=== PATIENT | female | born 1965 | race Caucasian/White ===

== ENCOUNTER 2025-02-28 08:22 | Emergency (ER) | payer MEDICAID, SELFPAY ==
--- OUTSIDE RECORDS SUMMARY | 2008-01-03 23:00 | XMS_ITS | Encounter Summary ---
Author Organization [facility] Address [address] [facility] [address] [place] [id number] Phone Care Team Providers Care Stretcher Helper Name Role Phone Unavailable Primary Care Provider Unavailabl e Encounter Details Date Type Department Care Team (Late st Contact Info) Description 01/04/2008 Hospital Encounter [facility],Outside Imaging [address] [place] [address] System, Provider Not In, [facility] [address] [address] Social History Tobacco Use Types Packs/Day Years Used Date Smoking Tobacco: Former Cigarettes 1 40 0 09/11/1979 - 09/11/2019 Smokeless Tobacco: Never Alcohol Use Standard Drinks/Week Comments Not Currently 0 (1 standard drink = 0.6 oz pur e alcohol) rarely Education Answer Date Recorded Are you interested in more education? Not on kiki e 07/25/2022 Are you concerned about learning? Not on file 07/25/2022 No 07/25/2022 No 07/25/2022 Digital Access Answer Date Recorded No 08/23/2022 No 08/23/2022 Reliable internet access at home? Not on file 08/23/2022 Device with a working camera? Not on file Intimate Partner Violence Answer Date R ecorded Are you denied basic needs s uch as food, clothing, or medical care? No 01/29/2024 In the past 12 months have y ou been in a relationship with a person who hurts, threatens, or tries to control you? No 01/29/2024 Are you denied basic needs s uch as food, clothing, or medical care? No 01/29/2024 In the past 12 months have y ou been in a relationship with a person who hurts, threatens, or tries to control you? No 01/29/2024 Comments No Sex and Gender Information Value Date Recorded Sex Assigned at Not on file Legal Sex Female 9:41 PM EDT Gender Identity Female 05/25/2023 11:29 AM EST Sexual Orientation Not on file documented as of this encounter Functional Status * Calculated C-SSRS Risk Score (Lifetime/Recent) Answer Date of Assessment Author Low Risk 01/29/2024 8:43 AM FIDET Esteban West RN * [place] Suicide Severity Rating Scale (Screener/Recent Self-Report) Question Answer Date of Assessment Author 1. Wish to be (Past 1 Month) No 024 8:43 AM FIDET Sonja West RN 2. Non-Specific Active Suici kia Thoughts (Past 1 Month) Yes 01/29/2024 8:43 AM FIDET Sonja West RN 3. Active Suicidal Ideation with any Methods (Not Plan) Without Intent to Act (Past 1 Month) No 01/29/2024 8:43 AM FIDET Anni West RN 4. Active Suicidal Ideation with Some Intent to Act, Without Specific Plan (Past 1 Month) No 01/29/2024 8:43 AM FIDET Anni West RN 5. Active Suicidal Ideation with Specific Plan and Intent (Past 1 Month) No 01/29/2024 8:43 AM FIDET Sonja West RN 6. Suicidal Behavior (Lifetime) No 8:43 AM FIDET Sonja West RN documented as of this encounter Plan of Treatment Upcoming Encounters Date Type Department Care Team (Late st Contact Info) Description 08/14/2025 4:30 PM EDT Office Visit [facility] 3rd Floor, [address] [place] [address] Taryn Herrera, SOFTWARE ENGINEER [address] [place] [address] [email or web address] documented as of this encounter Procedures Procedure Name Priority Date/Time Associated Diagnosis Comments BI US BREAST OUTSIDE (NO INTERPRETATION) Routine 01/04/2008 12:00 AM EDT documented in this encounter Results * US Breast Outside (No Interpretation) (01/04/2008 12:00 AM EDT) Narrative SYSTEMGENERATED, DOCUMENTATION - 03/28/2021 11:27 AM EST This study is for PACS storage only and not for interpretation. us Provider Not In System PhD IMG OUTSIDE IMAGING W /OUT INTERPRETATION Final Result documented in this encounter Visit Diagnoses Not on filedocumented in this encounter Additional Source Comments The information contained in this document represents components of the legal health record. It is not the complete legal health record.[facility]
--- OUTSIDE RECORDS SUMMARY | 2008-01-03 23:00 | XMS_ITS | Encounter Summary ---
Author Organization [facility] Address [address] [facility] [address] [place] [address] Phone Care Team Providers Care Cable Armorer Name Role Phone Unavailable Primary Care Provider Unavailabl e Encounter Details Date Type Department Care Team (Late st Contact Info) Description 01/04/2008 Hospital Encounter [facility] [address] [place] [address] Anthony Valenzuela MD [address] [facility], [address] [place] [address] [email or web address] Social History Tobacco Use Types Packs/Day Years [...] 8:43 AM FIDET Esteban West RN * [place] Suicide Severity Rating Scale (Screener/Recent Self-Report) Question Answer Date of Assessment Author 1. Wish to be (Past 1 Month) No 024 8:43 AM Sonja Parsons RN 2. Non-Specific Active Suici kia Thoughts (Past 1 Month) Yes 01/29/2024 8:43 AM Sonja Parsons RN 3. Active Suicidal Ideation with any Methods (Not Plan) Without Intent to Act (Past 1 Month) No 01/29/2024 8:43 AM Anni Parsons RN 4. Active Suicidal Ideation with Some Intent to Act, Without Specific Plan (Past 1 Month) No 01/29/2024 8:43 AM Anni Parsons RN 5. Active Suicidal Ideation with Specific Plan and Intent (Past 1 Month) No 01/29/2024 8:43 AM Sonja Parsons RN 6. Suicidal Behavior (Lifetime) No 8:43 AM Sonja Parsons RN documented as of this encounter Plan of Treatment Upcoming Encounters Date Type Department Care Team (Late st Contact Info) Description 08/14/2025 4:30 PM EDT Office Visit [facility] [address] [facility] [address] [facility], [address] [place] [address] Taryn Herrera, SIDE SAWYER [address] [place] [address] documented as of this encounter Procedures Procedure Name Priority Date/Time Associated Diagnosis Comments BI US BREAST OUTSIDE (NO INTERPRETATION) Routine 01/04/2008 12:00 AM EDT documented in this encounter Results * US Breast Outside (No Interpretation) (01/04/2008 12:00 AM EDT) Narrative [facility] IMG INTERFACES - 02/15/2021 10:33 AM EST This study is for PACS storage only and not for interpretation. us Anthony Valenzuela MD IMG OUTSIDE IMAGING W/OUT INTE RPRETATION Final Result [facility]G INTERFACES documented in this encounter Visit Diagnoses Not on filedocumented in this encounter Additional Source Comments The information contained in this document represents components of the legal health record. It is not the complete legal health record.[facility]
--- OUTSIDE RECORDS SUMMARY | 2010-02-04 | XMS_ITS | Encounter Summary ---
Author Organization [facility] Address [address] [facility] [address] [place] [address] Phone Care Team Providers Care Wrinkle Chaser Name Role Phone Unavailable Primary Care Provider Unavailabl e Encounter Details Date Type Department Care Team (Late st Contact Info) Description 02/04/2010 Hospital Encounter [facility] [address] [place] [address] Anthony Valenzuela MD [address] [facility], [address] [place] [address] Social History Tobacco Use Types Packs/Day Years [...] 8:43 AM FIDET Esteban West RN * [place] Suicide Severity Rating Scale (Screener/Recent Self-Report) Question [...] 1 Month) No 01/29/2024 8:43 AM Sonja Parosns RN 6. Suicidal Behavior (Lifetime) No 8:43 AM Sonja Parsons RN documented as of this encounter Plan of Treatment Upcoming Encounters Date Type Department Care Team (Late st Contact Info) Description 08/14/2025 4:30 PM EDT Office Visit [facility] [address] [facility] 3rd Floor, [address] [place] [address] Taryn Herrera, CAR[address] STREET[address] [place] [address] documented as of this encounter Procedures Procedure Name Priority Date/Time Associated Diagnosis Comments BI MAMMOGRAM OUTSIDE (NO INTERPRETATION) Routine 02/04/2010 12:00 AM EST documented in this encounter Results * Mammogram Outside (No Interpretation) (02/04/2010 12:00 AM EST) Narrative [facility] - 02/15/2021 10:34 AM EST This study is for PACS storage only and not for interpretation. us Anthony Valenzuela MD IMG OUTSIDE IMAGING W/OUT INTE RPRETATION Final Result [facility] documented in this encounter Visit Diagnoses Not on filedocumented in this encounter Additional Source Comments The information contained in this document represents components of the legal health record. It is not the complete legal health record.[facility]
--- NOTE | ~2025-02-28 | XR_ITS ---
EXAMINATION: XR CHEST CLINICAL INFORMATION: chest pain COMPARISON: None available. TECHNIQUE: PA and lateral views FINDINGS: No consolidation, pleural effusion or pneumothorax. Pulmonary reticular pattern, mild. Increased AP diameter of the thorax. Cardiomediastinal silhouette size is normal. Multilevel thoracolumbar spondylosis. Radiopaque anchors in the right humeral head/greater tuberosity. XR/XR chest 2V IMPRESSION: No acute airspace disease. Postsurgical changes suggesting rotator cuff tendon tear repair, right shoulder. Electronically signed by: Chris Bhatia MD 02/28/2025 09:19 AM [facility]
--- NOTE | ~2025-02-28 | US_ITS ---
EXAMINATION: US ABDOMEN LIMITED CLINICAL INFORMATION: Epigastric pain. Elevated liver function tests.. COMPARISON: None available. TECHNIQUE: Real-time imaging of the right upper quadrant abdominal viscera. FINDINGS: PANCREAS: Pancreas partially visualized. Visualized portion of the pancreas appears unremarkable. LIVER: The liver is normal in size. Right lobe measures 14.7 cm. Left lobe measures 7.5 cm. The liver contour is normal. Parenchymal echogenicity is normal. No focal hepatic lesion. There is no intrahepatic biliary duct dilatation seen. GALLBLADDER: The gallbladder is physiologically distended without evidence of stones, sludge, polyps, wall thickening or pericholecystic fluid. COMMON BILE DUCT: Normal in caliber measuring 0.2 cm in diameter. RIGHT KIDNEY: No hydronephrosis. No renal calculi or focal parenchymal lesions. The kidney measures 10.4 cm in maximum dimension. FREE FLUID: None. Technologist notes that patient reported pain upon palpation/scanning of the epigastric region/pancreas region. US/US abdomen limited IMPRESSION: * Pancreas is partially visualized. The visualized portion of the pancreas appears unremarkable. * No acute findings identified by ultrasound otherwise. * Cause of patient's symptoms has not been determined. Further evaluation with CT scan as clinically indicated. Electronically signed by: Shane Causey MD 02/28/2025 04:05 PM [facility]
--- NOTE | ~2025-02-28 | CT_ITS ---
EXAMINATION: CT HEAD WITHOUT IV CONTRAST HISTORY: headache. TECHNIQUE: Unenhanced helical CT of the head was performed per standard departmental protocol. Coronal and sagittal reformats of the head were also evaluated. One or more of the following techniques was used for dose reduction: Automated exposure control, adjustment of the mA and/or kV according to patient size, use of iterative reconstruction technique. DLP: 656 mGy-cm COMPARISON: There are no prior studies available for comparison. FINDINGS: BRAIN: The brain parenchyma is unremarkable. There is normal cummings/white differentiation. The ventricular system is normal in size and configuration. There is no mass effect or midline shift. No intra- or extra-axial fluid collections are identified. SINUSES: The visualized paranasal sinuses are clear. The mastoid air cells and middle ear cavities are well pneumatized. ORBITS: The visualized orbits are unremarkable. BONES/SOFT TISSUES: The extracranial soft tissues are unremarkable. The calvarium is intact. No suspicious lytic or sclerotic lesions. CT/CT head/brain wo IV con IMPRESSION: No acute intracranial abnormality. Electronically signed by: Jillian Roldan MD 02/28/2025 04:16 PM [facility]
--- NOTE | 2025-02-28 08:23 | ECG_ITS ---
Test Reason : CP Blood Pressure : */* mmHG Vent. Rate : 93 BPM Atrial Rate : 93 BPM P-R Int : 124 ms QRS Dur : 80 ms QT Int : 350 ms P-R-T Axes : 67 75 -7 degrees QTcB Int : 435 ms Normal sinus rhythm Nonspecific ST and T wave abnormality Abnormal ECG No previous ECGs available Referred By: Dilcia Banegas Electronically Signed By: ELGIN MURILLO
[2025-02-28 08:30] VITALS: BP 148/69; PULSE 101; RESP 20; TEMP 36.3; O2SAT 97; BMI 22.0
--- NOTE | 2025-02-28 08:31 | ED.GENADULT ---
HPI - General Adult General Chief complaint: Chest Pain Stated complaint: chest pain Time Seen by Provider: 02/28/25 14:35 Source: patient Mode of arrival: ambulatory Limitations: no limitations History of Present Illness ED Provider: DR. Wahl HPI narrative: 59-year-old female came in for evaluation of lower chest pain, and epigastric pain started since last night after dinner pain is mostly localized in the upper epigastric and lower chest area with no radiation, no palpitation, no shortness of breath, no nausea, vomiting, no burning sensation, no fever, no chills, no recent travel, no lower extremity swelling or tenderness. No history of intra-abdominal surgery, normal bowel movement, passing flatus normally. Patient complained of headache and confusion this morning now she is back at her baseline. Related Data Allergies Allergy/AdvReac Type Severity Reaction Status Date / Time clindamycin Allergy Vomiting Verified 02/28/25 08:33 codeine Allergy Vomiting Verified 02/28/25 08:33 [facility] Social History Social History Advance Directives: No Advance Directives Information Provided: No Do you have a plan to hurt others: No Plan Physical Exam ED Vital Signs: Vital Signs - 24 hr 02/28/25 08:30 02/28/25 15:00 02/28/25 16:56 Temperature 97.4 F 97.8 F Pulse Rate 101 H 71 78 Respiratory Rate 20 12 14 Blood Pressure 148/69 H 124/72 140/77 H Pulse Oximetry 97 98 97 Oxygen Delivery Method Room Air Room Air Room Air BMI result Body Mass Index 22.0 Vital signs have been reviewed and appear to be correct. Blood pressure elevated. Heart rate normal. Respiratory rate normal. Temperature normal. Oxygen saturation normal. Appearance: Alert. Oriented X3. No acute distress. Head: Normal external exam. Normocephalic. Atraumatic. No Salas signs noted. No raccoon eyes noted Eyes: PERRLA. EOMI. Conjunctiva and sclera normal. Eyelids normal. ENT: TM's Normal. Pharynx normal. Uvula midline. Moist mucous membranes. No trismus noted. No drooling noted. No muffled voice noted. Neck: Normal inspection. Neck supple. FROM. No adenopathy. Thyroid Normal. No meningeal signs. No neck mass noted. CVS: Normal heart rate and rhythm. Heart sound normal. No murmurs noted. Pulses normal throughout. Respiratory: No respiratory distress. Painless inspiration. Breath sounds normal. No wheezes/rales/rhonchi noted. Chest nontender. No accessory muscle usage noted or decreased air movement noted. Abdomen: Soft, mild epigastric tenderness, no guarding, no rebound tenderness. Bowel sounds normal in all 4 quadrants. No distention noted. No organomegaly noted. No visible injury noted. Back: No CVA tenderness. Full range of motion noted. Skin: Skin warm and dry. Normal skin color. Normal skin turgor. No rashes/lesions/lacerations noted. Extremities: No lower extremity edema. Extremities exhibit normal range of motion. Extremities nontender. Neuro: Mental status: Normal attention, orientation, memory, and affect. Cranial nerves: Pupils are equal, round and reactive to light, EOMI, visual bautista are fall, face is symmetric, facial sensations are normal. Motor examination normal muscle tone, strength to 4 extremities. DTR are +2, planter's are flexor. Sensory exam; normal coordination, no ataxia, gait stable. Cerebellar exam: [id number] and [id number] is normal. Extrapyramidal system: No tremors, no rigidity with normal facial expressions. Pronator drift not present Course Course Course Narrative: Rapid medical examination performed in triage by Dilcia Banegas PA-C: Patient is a 59 year old assigned female at presenting to the emergency department with chest pain. Detailed physical exam and review of systems are deferred to the rail operations controller. EKG, labs, imaging, swabs ordered. Patient placed back in the waiting room pending room availability and results. Reevaluation(s) Reevaluation #1: 59-year-old female came in for evaluation of multiple symptoms. 1. Chest pain negative troponin x2, negative D-dimer with absence of risk for DVT or pulmonary embolism. 2.Patient feels better after was given NSAIDs and PPI. 3. Ultrasound of the abdomen revealed no gallbladder problems. Patient feels much better will discharge to follow-up with PCP. Time: 17:25 Medications Administered Discontinued Medications Generic Name Dose Route Start Last Admin Trade Name Freq PRN Reason Stop Dose Admin Al Hydroxide/Mg Hydroxide 30 ml 02/28/25 14:54 02/28/25 15:12 Magnesium Hydrox/Alum Hydrox 30 Ml Oral.Susp PO 02/28/25 14:55 30 ml ONCE ONE Administration Famotidine 20 mg 02/28/25 14:54 02/28/25 15:12 Famotidine/Pf 20 Mg/2 Ml Vial IVPUSH 02/28/25 14:55 20 mg ONCE ONE Administration Sucralfate 1 gm 02/28/25 14:54 02/28/25 15:12 Sucralfate Oral Suspension 1 Gm/10 Ml Oral.Susp PO 02/28/25 14:55 1 gm ONCE ONE Administration Medical Decision Making Differential Diagnosis Differential Diagnoses: The differential diagnosis associated with the presentation includes ( ACS, pulmonary embolism, pneumonia, pneumothorax, pleural effusion, electrolyte derangement, severe anemia.) Admission/Observation Consideration of admission/observation: Escalation of care including admission/observation considered Lab Data MDM Lab Attestation statement: I reviewed the patient's lab results. 02/28/25 08:42 02/28/25 08:42 Labs: Lab Results 02/28/25 02/28/25 02/28/25 Range/Units 08:42 11:44 15:09 WBC 4.1 L (4.8-10.8) X10*3/uL RBC 3.68 L (4.20-5.50) X10*6/uL Hgb 12.8 (12.0-16.0) g/dl Hct 37.3 (37.0-47.0) % MCV 101.4 H (80.0-98.0) fL MCH 34.8 H (27.0-33.0) pg MCHC 34.3 (31.0-35.0) g/dl RDW 12.0 (11.0-16.0) % Plt Count 233 (160-400) X10*3/uL MPV 9.8 (9.4-12.3) fL Immature Gran % (Auto) 0.2 (0.0-0.4) % Neut % (Auto) 40.7 L (45-73) % Lymph % (Auto) 43.2 H (20-40) % [place] % (Auto) 15.2 H (2-11) % Eos % (Auto) 0.0 (0-4) % Baso % (Auto) 0.7 (0-2) % Lymph # (Auto) 1.8 (1.2-4.9) X10*3/uL [place] # (Auto) 0.6 (0.1-1.2) X10*3/uL Eos # (Auto) 0.0 (0.0-0.4) X10*3/uL Baso # (Auto) 0.0 (0.0-0.2) X10*3/uL Abs Immat Gran (auto) 0.01 (0.00-0.03) X10*3/uL Absolute Neuts (auto) 1.7 L (2.0-8.3) x10*3/uL Absolute Nucleated RBC 0.000 (0.0-0.012) X10*3/uL Nucleated RBC % (auto) 0.0 (0.0-0.2) /100WBC D-Dimer High Sensitivty < 150 NG/ML Sodium 139 (135-145) mmol/L Potassium 4.1 (3.3-5.1) mmol/L Chloride 106 (96-108) mmol/L Carbon Dioxide 28 (22-29) mmol/L Anion Gap 9 L (12-20) BUN 17 H (9-16) mg/dL Creatinine 0.90 (0.5-1.4) mg/dL Estim Creat Clear Calc 57.4 Estimated GFR > 60 Random Glucose 95 (60-115) mg/dL Calcium 9.1 (8.4-10.2) mg/dL Total Bilirubin 0.3 (0.0-1.0) mg/dL AST 23 (5-31) U/L ALT 14 (0-31) U/L Alkaline Phosphatase 67 (39-117) U/L Troponin I High Sens < 2.7 < 2.7 (<3.5-17.0) ng/L NT-Pro-B Natriuret Pep 118.0 (<300) pg/mL Total Protein 6.6 (6.5-8.0) g/dL Albumin 4.2 (3.5-5.0) g/dL Influenza Type A (PCR) NEGATIVE (Negative) Influenza Type B (PCR) NEGATIVE (Negative) RSV RNA Qual (PCR) NEGATIVE (Negative) SARS-CoV-2 RNA (RT-PCR) NEGATIVE (Negative) Independent Interpretation I performed an independent interpretation of an: Plain X-Ray ( Chest: No acute airspace disease. Postsurgical changes suggesting rotator cuff tendon tear repair, right shoulder.) and Ultrasound ( Abdomen: Pancreas is partially visualized. The visualized portion of the pancreas appears unremarkable. * No acute findings identified by ultrasound otherwise. * Cause of patient's symptoms has not been determined. Further evaluation with CT scan as clinically indicated.) Radiology Impression Discussion of test interpretation with radiology: I have reviewed the radiologist's reading. Discharge Plan Discharge Clinical Impression: Atypical chest pain Patient Disposition: Home, Self-Care Instructions: Noncardiac Chest Pain (ED) Referrals: Geoffrey Nayak DO [Primary Care Provider, Internal Medicine] Print Language: Hungarian
--- OUTSIDE RECORDS SUMMARY | 2025-02-28 09:04 | XMS_ITS | Encounter Summary ---
Author Organization [facility] Address [address] [place] [address] Phone Care Team Providers Care Junction Maker Name Role Phone Felicia Ken MD Primary Care Provider [phone] Geoffrey Nayak DO Primary Care Provider Светлана Perez [facility] Unavailable [phone] Zaina Fajardo Unavailable [email or web address] Geoffrey Hoffmann DO Unavailable [phone] Kaity Arnold Unavailable flash Kaity Arnold Unavailable flash Aaron Toribio Unavailable Encounter Details Date Type Department Care Team (Late st Contact Info) Description 12/14/2018 Transcribe Orders [address] [place] [address] Felicia Ken MD [address] [place] [address] Abdominal pain, unspecified abdominal location (Primary Dx) Social History Tobacco Use Types Packs/Day Years Used Date Smoking Tobacco: Every Day Cigarettes 1 30 Smokeless Tobacco: Never Alcohol Use Standard Drinks/Week Comments No 0 (1 standard drink = 0.6 oz pur e alcohol) Comments Unknown Sex and Gender Information Value Date Recorded Sex Assigned at Not on file Legal Sex Female 9:41 PM EDT Gender Identity Female 05/25/2023 11:29 AM EST Sexual Orientation Not on file documented as of this encounter Plan of Treatment Upcoming Encounters Date Type Department Care Team (Late st Contact Info) Description 08/14/2025 4:30 PM EDT Office Visit [facility] [address] 3rd Floor, [address] [place] [address] Taryn Herrera, INSTRUCTIONAL DESIGN MANAGER [address] [place] [address] documented as of this encounter Results * (ABNORMAL) Urinalysis w/reflex Urine Culture (12/14/2018 2:43 PM EDT) COLOR Yellow Yellow [facility] CLARITY Clear [facility] GLUCOSE Negative Negative [facility] BILI Negative Negative [facility] KETONES Negative Negative [facility] SPECIFIC GRAVITY 1.025 1.005 - 1.030 [facility] BLOOD Trace(A) Negative [facility] PH 6.5 5.0 - 8.0 [facility] Protein-UA Trace(A) Negative [facility] NITRITE Negative Negative [facility] Leukocyte esterase, ur Negative Negative [facility] Urine (Urine) 12/14/2018 2:4 3 PM EDT 12/14/2018 2:46 PM EDT Felicia Ken MD LAB URINE ORDERABLES Final R esult Performing Organization Address City/[facility]/ZIP Co de Phone Number [address] [address] * GGT (Gamma glutamyl transferase) (12/14/2018 2:43 PM EDT) GGT 14 7 - 33 U/L [facility] Blood 12/14/2018 2:43 PM EDT 12/14/2018 2:47 PM EDT us Felicia Ken MD LAB BLOOD BKR ORDERABLES Fin al Result Performing Organization Address City/[facility]/ZIP Co de Phone Number [address] [address] * (ABNORMAL) CBC and differential (12/14/2018 2:43 PM EDT) WBC 11.20 3.40 - 11.20 K/uL [facility] RBC 3.63(L) 3.80 - 4.80 M/uL [facility] HGB 12.6 12.0 - 15.0 g/dL [facility] HCT 36.4 36.0 - 46.0 % [facility] PLT 234 130 - 400 K/uL [facility] MCV 100.3(H) 79.0 - 98.0 fL [facility] MCH 34.7 27.0 - 34.8 pg [facility] MCHC 34.6 31.5 - 36.0 g/dL [facility] RDW 12.0 10.8 - 14.6 % [facility] MPV 11.3 9.4 - 12.4 fl [facility] NRBC 0.00 0.00 /100 WBCs [facility] ABSOLUTE NRBC 0.00 0.00 K/uL [facility] DIFF METHOD Auto [facility] NEUTS 75.7 45.30 - 77.70 % [facility] LYMPHS 11.7(L) 12.30 - 39.70 % [facility] MONOS 7.6 4.10 - 12.80 % [facility] EOS 4.0 0 - 7.2 % [facility] BASOS 0.7 0 - 2.80 % [facility] Granulocytes, immature (%) 0.3 0.0 - 0.9 % [facility] ABSOLUTE NEUTS 8.48(H) 1.40 - 7.70 K/uL [facility] ABSOLUTE LYMPHS 1.31 0.60 - 3.20 K/uL [facility] ABSOLUTE MONOS 0.85(H) 0.11 - 0.59 K/uL [facility] ABSOLUTE EOS 0.45 0.01 - 0.50 K/uL [facility] ABSOLUTE BASOS 0.08 0.00 - 0.08 K/uL [facility] Granulocytes, immature 0.03 0.00 - 0.05 K/uL [facility] Blood 12/14/2018 2:43 PM EDT 12/14/2018 2:47 PM EDT Felicia Ken MD LAB BLOOD BKR ORDERABLES Fin al Result Performing Organization Address City/[facility]/ZIP Co de Phone Number [address] [address] * (ABNORMAL) Basic metabolic panel (12/14/2018 2:43 PM EDT) SODIUM 139 133 - 146 mmol/L [facility] CHLORIDE 100 96 - 108 mmol/L [facility] POTASSIUM 4.4 3.3 - 5.1 mmol/L [facility] CO2 29 21 - 35 mmol/L [facility] BUN 19 6 - 19 mg/dL [facility] CREATININE 1.00 0.5 - 1.5 mg/dL [facility] GLUCOSE 100(H) 70 - 99 mg/dL [facility] CALCIUM 9.8 8.4 - 10.3 mg/dL [facility] EGFR 64 >59 mL/min/1.7 3m2 [facility] Comment:If patient is black, multiply result by 1.159. Estimated glomerular filtration rate calculated using the CKD-EPI equation. ANION GAP 14 10 - 20 mmol/L [facility] Blood 12/14/2018 2:43 PM EDT 12/14/2018 2:47 PM EDT Felicia Ken MD LAB BLOOD BKR ORDERABLES Fin al Result Performing Organization Address [facility] Co de Phone Number [address] [address] * LFTs (hepatic panel) (12/14/2018 2:43 PM EDT) ALKALINE PHOSPHATASE 82 39 - 117 U/L [facility] TOTAL BILIRUBIN 0.3 0.0 - 1.2 mg/dL [facility] DIRECT BILIRUBIN <0.2 0 - 0.3 mg/dL [facility] Bilirubin (Indirect) NOT CALCULATED 0 - 1.5 mg/dL [facility] AST 22 0 - 37 U/L [facility] ALT 10 0 - 40 U/L [facility] TOTAL PROTEIN 7.3 6.5 - 8.0 g/dL [facility] ALBUMIN 4.4 3.9 - 4.8 g/dL [facility] GLOBULIN 2.9 1 - 4.8 g/dL [facility] A/G Ratio 1.52 1.00 - 4.80 RATIO [facility] Blood 12/14/2018 2:43 PM EDT 12/14/2018 2:47 PM EDT Felicia Ken MD LAB BLOOD BKR ORDERABLES Fin al Result [address] [address] * Lipase (12/14/2018 2:43 PM EDT) LIPASE 43 16 - 63 U/L [facility] Blood 12/14/2018 2:43 PM EDT 12/14/2018 2:47 PM EDT Felicia Ken MD LAB BLOOD BKR ORDERABLES Fin al Result Performing Organization Address City/[facility] Co de Phone Number [address] [address] * Amylase (12/14/2018 2:43 PM EDT) AMYLASE 60 28 - 100 U/L [facility] Blood 12/14/2018 2:43 PM EDT 12/14/2018 2:47 PM EDT Felicia Ken MD LAB BLOOD BKR ORDERABLES Fin al Result Performing Organization Address [facility] Co de Phone Number [address] [address] documented in this encounter Visit Diagnoses Diagnosis Abdominal pain, unspecified abdominal location- Primary documented in this encounter Care Teams Junction Maker Relationship Specialty Start Date End Date Felicia Ken MD [address] [place] [address] PCP - General Internal Medicine 12/14/18 11/20/22 Geoffrey Nayak DO [address] [place] [address] PCP - General Internal Medicine 11/21/22 Светлана Perez [address] [address] PHCM Jewel Staker 12/11/22 Zaina Fajardo [address] [place] [address] [email or web address] Community Malt Roaster 01/29/23 03/04/23 Geoffrey Nayak DO [address] [place] [address] Insurance Assigned Provider 07/04/23 04/04/24 Kaity Arnold [address] [place] [address] [email or web address] [facility] Community Malt Roaster 01/28/24 02/01/24 Kaity Arnold [address] [place] [phone] [email or web address] [facility] Community Malt Roaster 06/06/24 06/07/24 Aaron Toribio [address] [place] [address] carlos Jewel Staker 02/01/25 02/01/25 documented as of this encounter Additional Source Comments The information contained in this document represents components of the legal health record. It is not the complete legal health record.[facility]
--- OUTSIDE RECORDS SUMMARY | 2025-02-28 09:04 | XMS_ITS | Encounter Summary ---
Author Organization [facility] Address [address] [place] [address] [place] [address] Phone Care Team Providers Care Supervisor Winding Department Name Role Phone Jorden Santiago MD Primary Care Provider [phone] Anthony Valenzuela MD Primary Care Provider [phone] Jorden Santiago MD Primary Care Provider [phone] Anthony Valenzuela MD Primary Care Provider [phone] Jorden Santiago MD Primary Care Provider [phone] Anthony Valenzuela MD Primary Care Provider [phone] Felicia Ken MD Primary Care Provider [phone] Geoffrey Nayak DO Primary Care Provider Светлана Perez [facility] Unavailable [phone] Zaina Fajardo Unavailable [email or web address] Geoffrey Hoffmann DO Unavailable [phone] Kaity Arnold Unavailable flash Kaity Arnold Unavailable flash Aaron Toribio Unavailable Encounter Details Date Type Department Care Team (Latest Contact Info) Description 09/09/2017 Transcribe Orders [facility] Specimen Processing [address] [place] [address] Anthony Valenzuela MD 22 [facility], [address] [place], [place] [phone] [email or web address] Left flank pain (Primary Dx) Social History Tobacco Use Types [...] Description 08/14/2025 4:30 PM EDT Office Visit [facility] [address] [place] [address] 3rd Floor, [address] [place], [place] [phone] Taryn Herrera, CONTRACT CLERK AUTOMOBILE [address] [place] [address] documented as of this encounter Results * (ABNORMAL) Urinalysis w/reflex Urine Culture (09/09/2017 7:18 PM EDT) COLOR Yellow Yellow [facility] CLARITY HAZY [facility] GLUCOSE Negative Negative [facility] BILI Negative Negative [facility] KETONES Negative Negative [facility] SPECIFIC GRAVITY >1.030 1.005 - 1.030 [facility] BLOOD 3+(A) Negative [facility] PH 5.5 5.0 - 8.0 [facility] Protein-UA 2+(A) Negative [facility] NITRITE Negative Negative [facility] Leukocyte esterase, ur 1+(A) Negative [facility] Urine (Urine) 09/09/2017 7:1 8 PM EDT 09/09/2017 7:20 PM EDT us Anthony Valenzuela MD LAB URINE ORDERABLES Final Res ult [facility] [address] [place] [address] documented in this encounter Visit Diagnoses Diagnosis Left flank pain- Primary Abdominal pain, unspecified site documented in this encounter Care Teams Supervisor Winding Department Relationship Specialty Start Date End Date Jorden Santiago MD [address] [address] [email or web address] PCP - General Internal Medicine 09/09/17 09/22/17 Anthony Valenzuela MD [address] [place] [address], [address] [place] [address] [email or web address] PCP - General Internal Medicine 09/23/17 10/19/17 Jorden Santiago MD [address] [address] [email or web address] PCP - General Internal Medicine 10/20/17 10/29/17 Anthony Valenzuela MD [address] [place] [address], [address] [place] [address] [email or web address] PCP - General Internal Medicine 10/30/17 12/19/17 Jorden Santiago MD [address] [address] [email or web address] PCP - General Internal Medicine 12/20/17 8 Anthony Valenzuela MD [address] [place] [address], [address] [place] [address] [email or web address] PCP - General Internal Medicine 01/25/18 12/13/18 Felicia Ken MD [address] [place] [address] PCP - General Internal Medicine 12/14/18 11/20/22 Geoffrey Nayak, [address] [place] [address], [address] [place] [address] PCP - General Internal Medicine 11/21/22 Светлана Perez [address] [address] PHCM Programmer Operator Numerical Control 12/11/22 Zaina Fajardo [address] [place] [address] [email or web address] Community Hand Meat Salter 01/29/23 03/04/23 Geoffrey Nayak DO [address] [place] [address], [address] [place] [address] Insurance Assigned Provider 07/04/23 04/04/24 Kaity Arnold [address] [place] [address] [email or web address] [facility] Community Hand Meat Salter 01/28/24 02/01/24 Kaity Arnold [address] [place] [phone] [email or web address] [facility] Community Hand Meat Salter 06/06/24 06/07/24 Aaron Toribio [address] [place] [address] [email or web address] Programmer Operator Numerical Control 02/01/25 02/01/25 documented as of this encounter Additional Source Comments The information contained in this document represents components of the legal health record. It is not the complete legal health record.[facility]
--- OUTSIDE RECORDS SUMMARY | 2025-02-28 09:04 | XMS_ITS | Encounter Summary ---
Author Organization [facility] Address [address] [place] [address] [place] [address] Phone Care Team Providers Care Spot Welder Line Name Role Phone Anthony Valenzuela MD Primary Care Provider [phone] Jorden Santiago MD Primary Care Provider [phone] Anthony Valenzuela MD Primary Care Provider [phone] Jorden Santiago MD Primary Care Provider [phone] Anthony Valenzuela MD Primary Care Provider [phone] Jorden Santiago MD Primary Care Provider [phone] Anthony Valenzuela MD Primary Care Provider [phone] Felicia Ken MD Primary Care Provider [phone] Geoffrey Nayak DO Primary Care Provider Светлана Perez [facility] Unavailable [phone] Zaina Fajardo Unavailable [email or web address] Geoffrey Hoffmann DO Unavailable [phone] Kaity Arnold Unavailable flash Kaity Arnold Unavailable flash [email or web address] Aaron Toribio Unavailable Encounter Details Date Type Department Care Team (Late st Contact Info) Description 09/02/2017 Ancillary Orders [facility] Department [address] [place] [address] Marisol Crespo, [place] [address] [place] [address] [email or web address] Calculus of kidney Social History Tobacco Use Types Packs/Day Years [...] Description 08/14/2025 4:30 PM EDT Office Visit [facility] [address] [place] [address] 3rd Floor, [address] [place] [address] Taryn Herrera, CAR SANDER [address] [place] [address] Scheduled Orders Name Type Priority Associated Diagnoses Orde r Schedule XR Abdomen Imaging Routine Calculus of kidney Expected: 09/02/2017, Expires: 09/02/2018 documented as of this encounter Results * US Kidneys and Bladder (11/04/2017 4:17 PM EDT) Anatomical Region Laterality Modality Abdomen, Kidney Ultrasound 11/04/2017 6:21 PM EDT Impressions 11/04/2017 6:25 PM EDT Exophytic cyst within the left kidney measuring 4.4 cm in maximal diameter is mildly complicated but has benign characteristics. No other renal abnormalities demonstrated. Poor evaluation of the urinary bladder due to underdistention. POS [id number] Narrative 11/04/2017 6:25 PM EDT HISTORY: Pain, history of urinary tract calculi and left renal cyst. COMPARISON: CT abdomen and pelvis 08/27/2017. FINDINGS: Right Kidney: Kidney is normal in size and echogenicity. It measures 10.6 cm in the long axis. No evidence of masses, calculi, pelvocaliectasis or significant cortical thinning. Left Kidney: Kidney normal in size measuring 10.1 cm in the long axis. Well-circumscribed anechoic exophytic mass within the posterior aspect of the kidney involving the upper pole and interpolar region. It measures 4.4 cm x 4.0 cm x 3.5 cm, enhances sound posteriorly and is consistent with a cyst. It contains a thin septation which may be calcified. No evidence of significant thickening of the wall of a cyst. No other masses. No visible calculi. No evidence of pelvocaliectasis or significant cortical thinning. Bladder: Bladder is poorly distended with a pre-void bladder volume measuring 67 cc. Bilateral ureteral jets visualized. No visible post void residual of 4 cc. Procedure Note Chacorta Calvin MD - 11/04/2017 HISTORY: Pain, history of urinary tract calculi and left renal cyst. COMPARISON: CT abdomen and pelvis 08/27/2017. FINDINGS: Right Kidney: Kidney is normal in size and echogenicity. It measures 10.6cm in the long axis. No evidence of masses, calculi, pelvocaliectasis orsignificant cortical thinning. Left Kidney: Kidney normal in size measuring 10.1 cm in the long axis.Well-circumscribed anechoic exophytic mass within the posterior aspect ofthe kidney involving the upper pole and interpolar region. It measures4.4 cm x 4.0 cm x 3.5 cm, enhances sound posteriorly and is consistentwith a cyst. It contains a thin septation which may be calcified. Noevidence of significant thickening of the wall of a cyst. No othermasses. No visible calculi. No evidence of pelvocaliectasis orsignificant cortical thinning. Bladder: Bladder is poorly distended with a pre-void bladder volumemeasuring 67 cc. Bilateral ureteral jets visualized. No visible postvoid residual of 4 cc. IMPRESSION: Exophytic cyst within the left kidney measuring 4.4 cm in maximal diameteris mildly complicated but has benign characteristics. No other renalabnormalities demonstrated. Poor evaluation of the urinary bladder due tounderdistention. POS [id number] Marisol VARGAS IMG US RENAL Final Resul t documented in this encounter Visit Diagnoses Diagnosis Calculus of kidney Calculus of kidney documented in this encounter Care Teams Spot Welder Line Relationship Specialty Start Date End Date Anthony Valenzuela MD [address] [facility], [address] [place] [address] [email or web address] PCP - General 04/02/17 09/08/17 Jorden Santiago MD [address] [address] [email or web address] - General Internal Medicine 09/09/17 09/22/17 Anthony Valenzuela MD [address] [place] [address], [address] [place] [address] [email or web address] PCP - General Internal Medicine 09/23/17 10/19/17 Jorden Santiago MD [address] [address] [email or web address] - General Internal Medicine 10/20/17 10/29/17 Anthony Valenzuela MD [address] [place] [address], [address] [place] [address] [email or web address] - General Internal Medicine 10/30/17 12/19/17 Jorden Santiago MD [address] [address] [email or web address] - General Internal Medicine 12/20/17 8 Anthony Valenzuela MD [address] [place] [address], [address] [place] [address] PCP - General Internal Medicine 01/25/18 12/13/18 Felicia Ken MD [address] [place] [address] PCP - General Internal Medicine 12/14/18 11/20/22 Geoffrey Nayak DO [address] [place] [address] PCP - General Internal Medicine 11/21/22 Светлана Perez [address] [address] PHCM Skidway Worker 12/11/22 Zaina Fajardo [address] [place] [address] [email or web address] Wastewater Plant Operator 01/29/23 03/04/23 Geoffrey Nayak DO [address] [place] [address] Insurance Assigned Provider 07/04/23 04/04/24 Kaity Arnold [address] [place] [address] [email or web address] Community Wastewater Plant Operator 01/28/24 02/01/24 Kaity Arnold [address] [place] [address] [email or web address] [facility] Community Wastewater Plant Operator 06/06/24 06/07/24 Aaron Toribio [address] [place] [address] carlos Skidway Worker 02/01/25 02/01/25 documented as of this encounter Additional Source Comments The information contained in this document represents components of the legal health record. It is not the complete legal health record.[facility]
--- OUTSIDE RECORDS SUMMARY | 2025-02-28 09:04 | XMS_ITS | Encounter Summary ---
Author Organization [facility] Address [address] [place] [address] [place] [address] Phone Care Team Providers Care Remote Mortgage Underwriter Name Role Phone Anthony Valenzuela MD Primary Care Provider [phone] Jorden Santiago MD Primary Care Provider [phone] Anthony Valenzuela MD Primary Care Provider [phone] Felicia Ken MD Primary Care Provider [phone] Geoffrey Nayak DO Primary Care Provider Светлана Perez [facility] Unavailable [phone] Zaina Fajardo Unavailable [email or web address] Geofrfey Hoffmann DO Unavailable [phone] Kaity Arnold Unavailable flash [email or web address] Kaity Arnold Unavailable flash [email or web address] Aaron Toribio Unavailable Reason for Referral * MRI/CAT Scan - Closed Specialty Diagnoses / Procedures Referred By Contac t Referred To Contact Radiology Diagnoses Numbness Procedures MRI Lumbar Spine Bernie Wilson MD Phone: tel: fax: Referral ID Status Reason Start Date Expiration Date Visits Re quested Visits Authorized [id number] Closed 01/15/2018 04/15/2018 1 1 * MRI/CAT Scan - Closed Specialty Diagnoses / Procedures Referred By Contac t Referred To Contact Radiology Diagnoses Numbness Procedures MRI Cervical Spine Bernie Wilson MD Phone: tel: fax: Referral ID Status Reason Start Date Expiration Date Visits Re quested Visits Authorized [id number] Closed 12/18/2017 03/18/2018 1 1 Encounter Details Date Type Department Care Team (Late Contact Info) Description 12/09/2017 Ancillary Orders Virtual Department [address] [place] [address] Bernie Wilson MD [address] [place] [address] [address] [place] [address] Numbness Social History Tobacco Use Types Packs/Day Years [...] Encounters Date Type Department Care Team (Late Contact Info) Description 08/14/2025 4:30 PM EDT Office Visit [facility] [address] [place] [address] 3rd Floor, [address] [place] [address] Taryn Herrera, [address] [address] documented as of this encounter Results * MRI LUMBAR SPINE (BONE) WITHOUT CONTRAST (02/17/2018 4:44 PM EST) Anatomical Region Laterality Modality L-spine Magnetic Resonan ce 02/17/2018 9:16 PM EST Impressions 02/18/2018 10:05 AM EST 1. No significant canal or neuroforaminal stenosis at any lumbar level. 2. Mild bulging disc at L4-L5 result in mild bilateral neuroforaminal narrowing. 3. Nonspecific heterogeneous bone marrow pattern which can be seen as a result of smoking, various causes of anemia or medications. POS - [id number] Edited by: Yenny West on 02/18/2018 9:06 AM Narrative 02/18/2018 10:05 AM EST EXAM: MRI LUMBAR SPINE (BONE) WITHOUT CONTRAST COMPARISON: None. HISTORY: Numbness. TECHNIQUE: Exam performed on a 1.5 Sheila high-field MRI scanner. Magnetic resonance imaging of the lumbar spine was performed WITHOUT injected contrast using standard department protocols. Sagittal T1, T2 and STIR, axial T1 and T2 sequences were obtained. FINDINGS: ALIGNMENT: Anatomic alignment is maintained. No anterior or posterior subluxations. VERTEBRAL BODIES: Vertebral body heights are maintained. Heterogeneous bone marrow signal pattern, nonspecific. INTERVERTEBRAL DISCS: Normal height and signal intensity. SPINAL CORD/CONUS: Included spinal cord has normal caliber and signal characteristics. The conus terminates normally at L1-L2. Level by level analysis yields the following: L1-2: No disc herniation. No significant canal or neuroforaminal stenosis. L2-3: No disc herniation. No significant canal or neuroforaminal stenosis. L3-4: No disc herniation. No significant canal or neuroforaminal stenosis. L4-5: Mild bulging disc contributes to mild bilateral neuroforaminal narrowing. No significant canal stenosis. L5-S1: Minimal bulging disc with superimposed shallow central disc protrusion. No significant canal or neuroforaminal stenosis. OTHERS: Visualized portions of the retroperitoneal structures are grossly unremarkable. Posterior paraspinal soft tissues are unremarkable. Procedure Note Alexis Mclaughlin MD - 02/18/2018 EXAM: MRI LUMBAR SPINE (BONE) WITHOUT CONTRAST COMPARISON: None. HISTORY: Numbness. TECHNIQUE: Exam performed on a 1.5 Sheila high-field MRI scanner. Magneticresonance imaging of the lumbar spine was performed WITHOUT injectedcontrast using standard department protocols. Sagittal T1, T2 and STIR,axial T1 and T2 sequences were obtained. FINDINGS: ALIGNMENT: Anatomic alignment is maintained. No anterior or posteriorsubluxations. VERTEBRAL BODIES: Vertebral body heights are maintained. Heterogeneousbone marrow signal pattern, nonspecific. INTERVERTEBRAL DISCS: Normal height and signal intensity. SPINAL CORD/CONUS: Included spinal cord has normal caliber and signalcharacteristics. The conus terminates normally at L1-L2. Level by level analysis yields the following: L1-2: No disc herniation. No significant canal or neuroforaminalstenosis. L2-3: No disc herniation. No significant canal or neuroforaminalstenosis. L3-4: No disc herniation. No significant canal or neuroforaminalstenosis. L4-5: Mild bulging disc contributes to mild bilateral neuroforaminalnarrowing. No significant canal stenosis. L5-S1: Minimal bulging disc with superimposed shallow central discprotrusion. No significant canal or neuroforaminal stenosis. OTHERS: Visualized portions of the retroperitoneal structures are grosslyunremarkable. Posterior paraspinal soft tissues are unremarkable. IMPRESSION: 1. No significant canal or neuroforaminal stenosis at any lumbar level. 2. Mild bulging disc at L4-L5 result in mild bilateral neuroforaminalnarrowing. 3. Nonspecific heterogeneous bone marrow pattern which can be seen as aresult of smoking, various causes of anemia or medications. POS - [id number] Edited by: Yenny West on 02/18/2018 9:06 AM Bernie Wilson MD IMG MR XSPECIALTY Final Result * MRI CERVICAL SPINE (NEURO) FOCUS WITHOUT CONTRAST (12/20/2017 11:13 AM EDT) Anatomical Region Laterality Modality C-spine Magnetic Resonan ce 12/20/2017 9:31 PM EDT Impressions 12/20/2017 9:45 PM EDT At C3-C4 there is be moderate to severe bilateral neural foraminal stenosis. Edema within the right C4-C5 facets. POS [id number] Narrative 12/20/2017 9:45 PM EDT HISTORY:. Neck and back pain, right upper extremity and right lower extremity numbness. COMPARISON: None. TECHNIQUE: Exam performed on a 1.5 Sheila high-field MRI scanner. Sagittal T1, T2 and STIR, axial T2* gradient echo and 3-D bright fluid sequences were obtained. FINDINGS: The cervical spinal cord is normal in morphology, position and signal. There is no intramedullary mass. Cervical vertebrae are normal in height and alignment. There is no subluxation. The intervertebral discs are normal in height and signal. There is no soft tissue abnormality in the neck. Bone marrow signal is normal other than edematous signal in the right C4-C5 facet. There is no focal disc herniation in the cervical spine. C2-C3: No disc herniation. No canal or neural foraminal stenosis. C3-C4: Mild bilateral uncovertebral hypertrophic changes. No significant canal or neural foraminal stenosis. C4-C5: Very mild diffuse disc bulging, bilateral uncovertebral osteophytes and bilateral facet degenerative osteophytes. There is mild canal stenosis, moderate to severe bilateral neural foraminal stenosis. There is edema within the right C4- C5 facets. C5-C6: No disc herniation. Bilateral uncovertebral small osteophytes and bilateral facet degenerative osteophytes. There is no significant canal or neural foraminal stenosis. C6-C7: Mild uncovertebral osteophytes and facet osteophytes bilaterally. No significant canal or neural foraminal stenosis. Procedure Note Olamide Oh MD - 12/20/2017 HISTORY:. Neck and back pain, right upper extremity and right lowerextremity numbness. COMPARISON: None. TECHNIQUE: Exam performed on a 1.5 Sheila high-field MRI scanner.Sagittal T1, T2 and STIR, axial T2* gradient echo and 3-D bright fluidsequences were obtained. FINDINGS: The cervical spinal cord is normal in morphology, position and signal.There is no intramedullary mass. Cervical vertebrae are normal in height and alignment. There is nosubluxation. The intervertebral discs are normal in height and signal.There is no soft tissue abnormality in the neck. Bone marrow signal isnormal other than edematous signal in the right C4-C5 facet. There is no focal disc herniation in the cervical spine. C2-C3: No disc herniation. No canal or neural foraminal stenosis. C3-C4: Mild bilateral uncovertebral hypertrophic changes. No significantcanal or neural foraminal stenosis. C4-C5: Very mild diffuse disc bulging, bilateral uncovertebral osteophytesand bilateral facet degenerative osteophytes. There is mild canalstenosis, moderate to severe bilateral neural foraminal stenosis. There isedema within the right C4-C5 facets. C5-C6: No disc herniation. Bilateral uncovertebral small osteophytes andbilateral facet degenerative osteophytes. There is no significant canal orneural foraminal stenosis. C6-C7: Mild uncovertebral osteophytes and facet osteophytes bilaterally.No significant canal or neural foraminal stenosis. IMPRESSION: At C3-C4 there is be moderate to severe bilateral neural foraminalstenosis. Edema within the right C4-C5 facets. POS [id number] us Bernie Wilson MD IMG MR XSPECIALTY Final Result documented in this encounter Visit Diagnoses Diagnosis Numbness Disturbance of skin sensation Numbness Disturbance of skin sensation Numbness Disturbance of skin sensation documented in this encounter Care Teams Remote Mortgage Underwriter Relationship Specialty Start Date End Date nAthony Valenzuela MD [address] [place] [address], [address] [place] [address] [email or web address] PCP - General Internal Medicine 10/30/17 12/19/17 Jorden Santiago MD [address] [place] [address] [email or web address] PCP - General Internal Medicine 12/20/17 8 Anthony Valenzuela MD [address] [place] [address], [address] [place] [address] PCP - General Internal Medicine 01/25/18 12/13/18 Felicia Ken MD [address] [place] [address] PCP - General Internal Medicine 12/14/18 11/20/22 Geoffrey Nayak, [address] [place] [address], [address] [place] [address] PCP - General Internal Medicine 11/21/22 Светлана Perez [address] [address] PHCM Crystal Calibrator 12/11/22 Zaina Fajardo [address] [place] [address] [email or web address] Community Coordinator Of Health Services 01/29/23 03/04/23 Geoffrey Nayak DO [address] [place] [address] Insurance Assigned Provider 07/04/23 04/04/24 Kaity Arnold [address] [place] [address] [email or web address] [facility] Community Coordinator Of Health Services 01/28/24 02/01/24 Kaity Arnold [address] [place] [address] [email or web address] [facility] Community Coordinator Of Health Services 06/06/24 06/07/24 Aaron Toribio [address] [place] [address] [email or web address] Crystal Calibrator 02/01/25 02/01/25 documented as of this encounter Additional Source Comments The information contained in this document represents components of the legal health record. It is not the complete legal health record.[facility]
--- OUTSIDE RECORDS SUMMARY | 2025-02-28 09:04 | XMS_ITS | Encounter Summary ---
Author Organization [facility] Address [address] [place] [address] [place] [address] Phone Care Team Providers Care Ax Survey Worker Name Role Phone Anthony Valenzuela MD Primary Care Provider [phone] Jorden Santiago MD Primary Care Provider [phone] Anthony Valenzuela MD Primary Care Provider [phone] Jorden Santiago MD Primary Care Provider [phone] Anthony Valenzuela MD Primary Care Provider [phone] Jorden Santiago MD Primary Care Provider [phone] Anthony Valenzuela MD Primary Care Provider [phone] Felicia Ken MD Primary Care Provider [phone] Geoffrey Nayak DO Primary Care Provider Светлана Perez [facility] Unavailable [phone] Zaina Fajardo Unavailable [email or web address] Geoffrey Hoffmann DO Unavailable [phone] Kaity Arnold Unavailable flash Kaity Arnold Unavailable flash Aaron Toribio Unavailable Encounter Details Date Type Department Care Team (Late st Contact Info) Description 08/26/2017 Procedure Pass [facility], Ct Scan - [address] [address] Social History Tobacco Use Types Packs/Day Years [...] Description 08/14/2025 4:30 PM EDT Office Visit [facility] [address] [facility] 3rd Floor, [address] [place] [address] Taryn Herrera, FIELD SOFTWARE ENGINEER [address] [place] [address] [email or web address] documented as of this encounter Visit Diagnoses Not on filedocumented in this encounter Care Teams Ax Survey Worker Relationship Specialty Start Date End Date Anthony Valenzuela MD [address] [place] [address], [address] [place] [address] [email or web address] PCP - General 04/02/17 09/08/17 Jorden Santiago MD [address] [place] [address] [email or web address] PCP - General Internal Medicine 09/09/17 09/22/17 Anthony Valenzuela MD [address] [place] [address], [address] [place] [address] [email or web address] PCP - General Internal Medicine 09/23/17 10/19/17 Jorden Santiago MD [address] [place] [address] [email or web address] PCP - General Internal Medicine 10/20/17 10/29/17 Anthony Valenzuela MD [address] [facility], [address] [place] [address] PCP - General Internal Medicine 10/30/17 12/19/17 Jorden Santiago MD [address] [place] [address] [email or web address] PCP - General Internal Medicine 12/20/17 Anthony Valenzuela MD [address] [facility], [address] [place] [address] PCP - General Internal Medicine 01/25/18 12/13/18 Felicia Ken MD [address] [place] [address] PCP - General Internal Medicine 12/14/18 11/20/22 Geoffrey Nayak DO [address] [place] [address], [address] [place] [address] PCP - General Internal Medicine 11/21/22 Светлана Perez, COMMERCIAL LITIGATION ASSOCIATE [address] [place] [address] PHCM Auto Body Repair Technician 12/11/22 Zaina Fajardo [address] [place] [address] [email or web address] Community Termite Treater 01/29/23 03/04/23 Geoffrey Nayak DO [address] [place] [address], [address] [place] [address] [email or web address] Insurance Assigned Provider 07/04/23 04/04/24 Kaity Arnold [address] [place] [address] [email or web address] PHC Community Termite Treater 01/28/24 02/01/24 Kaity Arnold [address] [place] [address] [email or web address] [facility] Community Termite Treater 06/06/24 06/07/24 Aaron Toribio [address] [place] [address] [email or web address] Auto Body Repair Technician 02/01/25 02/01/25 documented as of this encounter Additional Source Comments The information contained in this document represents components of the legal health record. It is not the complete legal health record.[facility]
--- OUTSIDE RECORDS SUMMARY | 2025-02-28 09:04 | XMS_ITS | Encounter Summary ---
Author Organization [facility] Address [address] [facility] [address] [place] [address] Phone Care Team Providers Care Charter Boat Operator Name Role Phone Geoffrey Nayak DO Primary Care Provider Светлана Perez [employer] Unavailable [phone] Geoffrey Nayak DO Unavailable [phone] Kaity Arnold Unavailable flash Kaity Arnold Unavailable flash Aaron Toribio Unavailable Encounter Details Date Type Department Care Team (Late st Contact Info) Description 08/06/2023 Transcribe Orders [facility] Phleb Florina [address] [facility] [address] [place] [address] Geoffrey Nayak DO [address], [address]nd [place] [address] Social History Tobacco Use Types Packs/Day Years Used Date Smoking Tobacco: Former Cigarettes 1 40 0 09/11/1979 - 09/11/2019 Smokeless Tobacco: Never Alcohol Use Standard Drinks/Week Comments Not Currently 0 (1 standard drink = 0.6 oz pur e alcohol) rarely drinks Education Answer Date Recorded Are you interested in more education? Not on kiki e 07/25/2022 Are you concerned about learning? Not on file 07/25/2022 No 07/25/2022 No 07/25/2022 Digital Access Answer Date Recorded No 08/23/2022 No 08/23/2022 Reliable internet access at home? Not on file 08/23/2022 Device with a working camera? Not on file Comments No Sex and Gender Information Value Date Recorded Sex Assigned at Not on file Legal Sex Female 9:41 PM EDT Gender Identity Female 05/25/2023 11:29 AM EST Sexual Orientation Not on file documented as of this encounter Plan of Treatment Upcoming Encounters Date Type Department Care Team (Late st Contact Info) Description 08/14/2025 4:30 PM EDT Office Visit [facility] [address] [place] [address] 3rd Floor, [address] [place] [address] Taryn Herrera, VERIFICATION MANAGER [address] [place] [address] documented as of this encounter Visit Diagnoses Not on filedocumented in this encounter Additional Health Concerns Assessment Noted Time PHQ-9 Depression Total Score: 21 023 8:49 AM EDT PHQ-2 Depression Total Score: 0 01/02/20 23 1:30 PM EDT documented as of this encounter Care Teams Charter Boat Operator Relationship Specialty Start Date End Date Geoffrey Nayak DO [address] [address] PCP - General Internal Medicine 11/21/22 Светлана Perez LICSW [address] [place] [address] PHCM Television Operator 12/11/22 Geoffrey Nayak DO [address] [facility], [address] [place] [address] [email or web address] Insurance Assigned Provider 07/04/23 04/04/24 Kaity Arnold [address] [place] [address] [email or web address] PHCM Community Tactical Deception Plans Officer 01/28/24 02/01/24 Kaity Arnold [address] [place] [address] [email or web address] PHCM Community Tactical Deception Plans Officer 06/06/24 06/07/24 Aaron Toribio [address] [place] [address] [email or web address] Operator 02/01/25 02/01/25 documented as of this encounter Additional Source Comments The information contained in this document represents components of the legal health record. It is not the complete legal health record.[facility]
--- OUTSIDE RECORDS SUMMARY | 2025-02-28 09:04 | XMS_ITS | Encounter Summary ---
Author Organization [facility] Address [address] [place] [address] Phone Care Team Providers Care Ultrasonic Cleaner Name Role Phone Geoffrey Nayak DO Primary Care Provider Светлана Perez CITRIX CONSULTANT Unavailable [phone] Zaina Fajardo Unavailable [email or web address] Geoffrey Hoffmann DO Unavailable [phone] Kaity Arnold Unavailable flash Kaity Arnold Unavailable flash Aaron Toribio Unavailable Encounter Details Date Type Department Care Team (Late st Contact Info) Description 12/11/2022 Procedure Pass [facility], Ct Scan - [address] [address] Social History Tobacco Use Types Packs/Day Years [...] Description 08/14/2025 4:30 PM EDT Office Visit [facility] [address] [facility] [place] 3rd Floor, [address] [place] [address] Taryn Herrera, GRANULATING BLENDER [address] [place] [address] documented as of this encounter Visit Diagnoses Not on filedocumented in this encounter Additional Health Concerns Assessment Noted Time PHQ-9 Depression Total Score: 21 023 8:49 AM EDT PHQ-2 Depression Total Score: 0 01/02/20 23 1:30 PM EDT documented as of this encounter Care Teams Ultrasonic Cleaner Relationship Specialty Start Date End Date Geoffrey Nayak DO [address] [address] PCP - General Internal Medicine 11/21/22 Светлана Perez LICSW [address] [place] [address] PHCM Negative Restorer 12/11/22 Zaina Fajardo [address] [place] [address] [email or web address] PHCM Community Hot Mill Operator 01/29/23 03/04/23 Geoffrey Nayak DO [address] [address] Insurance Assigned Provider 07/04/23 04/04/24 Kaity Arnold [address] [place] [address] [email or web address] [facility] Community Hot Mill Operator 01/28/24 02/01/24 Kaity Arnold [address] [place] [address] [email or web address] [facility] Community Hot Mill Operator 06/06/24 06/07/24 Aaron Toribio [address] [place] [address] [email or web address] Negative Restorer 02/01/25 02/01/25 documented as of this encounter Additional Source Comments The information contained in this document represents components of the legal health record. It is not the complete legal health record.[facility]
--- OUTSIDE RECORDS SUMMARY | 2025-02-28 09:04 | XMS_ITS | Encounter Summary ---
Author Organization [facility] Address [address] [place] [address] [place] [address] Phone Care Team Providers Care Support Group Manager Name Role Phone Anthony Valenzuela MD Primary Care Provider Jorden Santiago MD Primary Care Provider [phone] Anthony Valenzuela MD Primary Care Provider [phone] Felicia Ken MD Primary Care Provider [phone] Geoffrey Nayak DO Primary Care Provider Светлана Perez [facility] Unavailable [phone] Zaina Fajardo Unavailable [email or web address] Geoffrey Hoffmann DO Unavailable [phone] Kaity Arnold Unavailable flash [email or web address] Kaity Arnold Unavailable flash [email or web address] Aaron Toribio Unavailable Encounter Details Date Type Department Care Team (Late st Contact Info) Description 12/09/2017 Procedure Pass [facility], [address] [address] Social History Tobacco Use Types Packs/Day Years [...] Description 08/14/2025 4:30 PM EDT Office Visit [facility] [address] [facility] 3rd Floor, [address] [place] [address] Taryn Herrera, WATCH ASSEMBLY INSTRUCTOR [address] [place] [address] documented as of this encounter Visit Diagnoses Not on filedocumented in this encounter Care Teams Support Group Manager Relationship Specialty Start Date End Date Anthony Valenzuela MD [address] [facility], [address] [place] [address] [email or web address] PCP - General Internal Medicine 10/30/17 12/19/17 Jorden Santiago MD [address] [place] [address] [email or web address] PCP - General Internal Medicine 12/20/17 8 Anthony Valenzuela MD [address] [place] [address], [address] [place] [address] PCP - General Internal Medicine 01/25/18 12/13/18 Felicia Ken MD [address] [place] [address] 1 [place] [address] [email or web address] PCP - General Internal Medicine 12/14/18 11/20/22 Geoffrey Nayak DO [address] [place] [address], 2nd [place] [address] [email or web address] PCP - General Internal Medicine 11/21/22 Светлана Perez, CHAIRMAN & CEO [address] [place] [address] [email or web address] PHCM Motorcycle Police 12/11/22 Zaina Fajardo [address] [place] [address] [email or web address] PHC Community Director Of Student Affairs 01/29/23 03/04/23 Geoffrey Nayak DO [address] [place] [address], 2[address] [place] [address] [email or web address] Insurance Assigned Provider 07/04/23 04/04/24 Kaity Arnold [address] [place] [phone] [email or web address] [facility] Community Director Of Student Affairs 01/28/24 02/01/24 Kaity Arnold [address] [place] [phone] [email or web address] [facility] Community Director Of Student Affairs 06/06/24 06/07/24 Aaron Toribio [address] [place] [address] [email or web address] Motorcycle Police 02/01/25 02/01/25 documented as of this encounter Additional Source Comments The information contained in this document represents components of the legal health record. It is not the complete legal health record.[facility]
--- OUTSIDE RECORDS SUMMARY | 2025-02-28 09:04 | XMS_ITS | Encounter Summary ---
Author Organization [facility] Address [address] [place] [address] [place] [address] Phone Care Team Providers Care Insurance Claims Clerk Name Role Phone Felicia Ken MD Primary Care Provider [phone] Geoffrey Nayak DO Primary Care Provider Светлана Perez [facility] Unavailable [phone] Zaina Fajardo Unavailable [email or web address] Geoffrey Hoffmann DO Unavailable [phone] Kaity Arnold Unavailable flash [email or web address] Kaity Arnold Unavailable flash [email or web address] Aaron Toribio Unavailable Reason for Referral * MRI/CAT Scan - Closed Specialty Diagnoses / Procedures Referred By Demi t Referred To Contact Radiology Diagnoses Flank pain, acute Personal history of kidney stones Procedures CT Abdomen/Pelvis Jose Hampton MD Phone: tel: fax: [email or web address] Referral ID Status Reason Start Date Expiration Date Visits Re quested Visits Authorized [id number] Closed 12/15/2018 03/15/2019 1 1 Encounter Details Date Type Department Care Team (Late st Contact Info) Description 12/15/2018 Ancillary Orders [facility] Department [address] [place] [phone] Jose Hampton MD [address] [place] [address], [address] [address] [email or web address] Flank pain, acute; Personal history of kidney stones Social History Tobacco Use Types Packs/Day Years [...] 08/14/2025 4:30 PM EDT Office Visit [facility] [address] [place] [address] 3rd Floor, [address] [place] [address] Taryn Herrera, COLOR CONSULTANT [address] [place] [address] [email or web address] documented as of this encounter Results * CT ABDOMEN/PELVIS WITHOUT CONTRAST (12/15/2018 12:35 PM EDT) Anatomical Region Laterality Modality Abdomen, Pelvis Computed Tomogra phy 12/15/2018 2:21 PM EDT Impressions 12/15/2018 2:30 PM EDT 1. No renal or ureteral calculi. No hydronephrosis. 2. Mild acute diverticulitis at the junction of the descending and sigmoid colon in the LEFT lower quadrant. 3. LEFT renal 4.9 cm cyst with a few peripheral rim calcifications, stable compared with 08/27/2017 CT. TOTAL CTDIvol: 5.40 mGy POS - [id number] Narrative 12/15/2018 2:30 PM EDT EXAM: CT ABDOMEN/PELVIS WITHOUT CONTRAST HISTORY: Flank pain, acute Personal history of kidney stones TECHNIQUE: CT imaging of the abdomen and pelvis. No oral or IV contrast, standard stone protocol. Imaging from above the adrenal glands to the pubic symphysis. Coronal and sagittal images reconstructed. Radiation dose control: Exam performed with automated exposure control or iterative reconstruction to minimize radiation exposure. COMPARISON: 08/27/2017 CT. 11/04/2017 Renal ultrasound. FINDINGS: Limited without the presence of IV or oral contrast. There are no lung base pleural effusions. Stable coarsely calcified granuloma medial LEFT lung base. The included portions of the liver and spleen are normal. The unenhanced pancreas, gallbladder, biliary tree and adrenal glands are normal. There are no calcified gallstones. Again seen is a 4.9 x 4.9 cm well-circumscribed simple fluid density cyst with a few linear coarse calcifications along the posterior peripheral margin. It is unchanged in size and appearance compared with the prior CT. There are no renal or ureteral calculi. There is no hydroureteronephrosis. Normal physiologic bladder distention, without bladder calculi or wall thickening. The unopacified stomach and small bowel are within normal limits. Minimal amount of stool throughout the colon. There is descending and sigmoid colonic diverticulosis. In the LEFT lower quadrant there is mild wall thickening and pericolonic fat stranding centered on an inflamed diverticulum (4:109-119) at the junction of the descending and sigmoid colon. Findings are consistent with mild acute diverticulitis. There is no free air or abscess collection. There is no ascites or lymphadenopathy. Normal appendix. There is minimal abdominal aortic and iliac artery atherosclerotic calcification. Normal diameter of the abdominal aorta. There is no pelvic mass. The adnexa are normal. No suspicious lytic or blastic bone lesions or fractures. Procedure Note Olamide Oh MD - 12/15/2018 EXAM: CT ABDOMEN/PELVIS WITHOUT CONTRAST HISTORY: Flank pain, acute Personal history of kidney stones TECHNIQUE: CT imaging of the abdomen and pelvis. No oral or IV contrast,standard stone protocol. Imaging from above the adrenal glands to thepubic symphysis. Coronal and sagittal images reconstructed. Radiation dose control: Exam performed with automated exposure control oriterative reconstruction to minimize radiation exposure. COMPARISON: 08/27/2017 CT. 11/04/2017 Renal ultrasound. FINDINGS: Limited without the presence of IV or oral contrast. There are no lung base pleural effusions. Stable coarsely calcifiedgranuloma medial LEFT lung base. The included portions of the liver and spleen are normal. The unenhancedpancreas, gallbladder, biliary tree and adrenal glands are normal. Thereare no calcified gallstones. Again seen is a 4.9 x 4.9 cm well-circumscribed simple fluid density cystwith a few linear coarse calcifications along the posterior peripheralmargin. It is unchanged in size and appearance compared with the prior CT.There are no renal or ureteral calculi. There is no hydroureteronephrosis.Normal physiologic bladder distention, without bladder calculi or wallthickening. The unopacified stomach and small bowel are within normal limits. Minimalamount of stool throughout the colon. There is descending and sigmoidcolonic diverticulosis. In the LEFT lower quadrant there is mild wallthickening and pericolonic fat stranding centered on an inflameddiverticulum (4:109-119) at the junction of the descending and sigmoidcolon. Findings are consistent with mild acute diverticulitis. There is no free air or abscess collection. There is no ascites orlymphadenopathy. Normal appendix. There is minimal abdominal aortic and iliac artery atheroscleroticcalcification. Normal diameter of the abdominal aorta. There is no pelvic mass. The adnexa are normal. No suspicious lytic or blastic bone lesions or fractures. IMPRESSION: 1. No renal or ureteral calculi. No hydronephrosis. 2. Mild acute diverticulitis at the junction of the descending andsigmoid colon in the LEFT lower quadrant. 3. LEFT renal 4.9 cm cyst with a few peripheral rim calcifications,stable compared with 08/27/2017 CT. TOTAL CTDIvol: 5.40 mGy POS - [id number] Jose Hampton MD IMG CT ABD/PELVIS Final Result documented in this encounter Visit Diagnoses Diagnosis Flank pain, acute Personal history of kidney stones Personal history of urinary calculi Flank pain, acute Personal history of kidney stones Personal history of urinary calculi documented in this encounter Care Teams Insurance Claims Clerk Relationship Specialty Start Date End Date Felicia Ken MD [address] [place] [address] PCP - General Internal Medicine 12/14/18 11/20/22 Geoffrey Nayak, [address] [place] [address], [address] [place] [address] PCP - General Internal Medicine 11/21/22 Светлана Perez [address] [address] PHCM Specialized Developer 12/11/22 Zaina Fajardo [address] [place] [phone] [email or web address] Community Energy Audit Advisor 01/29/23 03/04/23 Geoffrey Nayak DO [address] [place] [phone] Insurance Assigned Provider 07/04/23 04/04/24 Kaity Arnold [address] [place] [phone] [email or web address] [facility] Community Energy Audit Advisor 01/28/24 02/01/24 Kaity Arnold [address] [place] [phone] [email or web address] [facility] Community Energy Audit Advisor 06/06/24 06/07/24 Aaron Toribio [address] [place] [address] carlos Specialized Developer 02/01/25 02/01/25 documented as of this encounter Additional Source Comments The information contained in this document represents components of the legal health record. It is not the complete legal health record.[facility]
--- OUTSIDE RECORDS SUMMARY | 2025-02-28 09:04 | XMS_ITS | Encounter Summary ---
Author Organization [facility] Address [address] [place] [address] [place] [address] Phone Care Team Providers Care Branch Credit Counselor Name Role Phone Anthony Valenzuela MD Primary Care Provider [phone] Jorden Santiago MD Primary Care Provider [phone] Anthony Valenzuela MD Primary Care Provider [phone] Felicia Ken MD Primary Care Provider [phone] Geoffrey Nayak DO Primary Care Provider Светлана Perez [facility] Unavailable [phone] Zaina Fajardo Unavailable [email or web address] Geoffrey Hoffmann DO Unavailable [phone] Kaity Arnold Unavailable flash [email or web address] Kaity Arnold Unavailable flash [email or web address] Aaron Toribio Unavailable Encounter Details Date Type Department Care Team (Late st Contact Info) Description 12/09/2017 Procedure Pass [facility], [address] [address] Social History Tobacco Use Types Packs/Day Years [...] Description 08/14/2025 4:30 PM EDT Office Visit [facility] [address] [facility] 3rd Floor, [address] [place] [address] Taryn Herrera, AUTOMATION CONSULTANT [address] [place] [address] documented as of this encounter Visit Diagnoses Not on filedocumented in this encounter Care Teams Branch Credit Counselor Relationship Specialty Start Date End Date Anthony Valenzuela MD [address] [facility], [address] [place] [address] PCP - General Internal Medicine 10/30/17 12/19/17 Jorden Santiago MD [address] [place] [address] [email or web address] PCP - General Internal Medicine 12/20/17 8 Anthony Valenzuela MD [address] [place] [address], [address] [place] [address] PCP - General Internal Medicine 01/25/18 12/13/18 Felicia Ken MD [address] [place] [address] 1 [place] [address] PCP - General Internal Medicine 12/14/18 11/20/22 Geoffrey Nayak DO [address] [place] [address], 2nd [place] [address] PCP - General Internal Medicine 11/21/22 Светлана Perez, WATER CHEMIST [address] [place] [address] [email or web address] PHCM Tool Or Die Drawing Checker 12/11/22 Zaina Fajardo [address] [place] [address] [email or web address] PHC Community Framer 01/29/23 03/04/23 Geoffrey Nayak DO [address] [place] [address], [address] [place] [address] [email or web address] Insurance Assigned Provider 07/04/23 04/04/24 Kaity Arnold [address] [place] [address] [email or web address] [facility] Community Framer 01/28/24 02/01/24 Kaity Arnold [address] [place] [phone] [email or web address] [facility] Community Framer 06/06/24 06/07/24 Aaron Toribio [address] [place] [address] [email or web address] Tool Or Die Drawing Checker 02/01/25 02/01/25 documented as of this encounter Additional Source Comments The information contained in this document represents components of the legal health record. It is not the complete legal health record.[facility]
--- OUTSIDE RECORDS SUMMARY | 2025-02-28 09:05 | XMS_ITS | Encounter Summary ---
Author Organization [facility] Address [address] [place] [address] [place] [address] Phone Care Team Providers Care Supervisor Paper Products Name Role Phone Felicia Ken MD Primary Care Provider [phone] Geoffrey Nayak DO Primary Care Provider Светлана Perez [facility] Unavailable [phone] Zaina Fajardo Unavailable [email or web address] Geoffrey Hoffmann DO Unavailable [phone] Kaity Arnold Unavailable flash [email or web address] Kaity Arnold Unavailable flash [email or web address] Aaron Toribio Unavailable Encounter Details Date Type Department Care Team (Late Contact Info) Description 04/06/2020 Procedure Pass [place] Admitting Dept - Virtual Department [address] [place] [phone] Social History Tobacco Use Types Packs/Day Years Used Date Smoking Tobacco: Former Cigarettes 1 40 0 09/11/1979 - 09/11/2019 Smokeless Tobacco: Never Alcohol Use Standard Drinks/Week Comments Not Currently 0 (1 standard drink = 0.6 oz pur e alcohol) rarely drinks Comments No Sex and Gender Information Value Date Recorded Sex Assigned at Not on file Legal Sex Female 9:41 PM EDT Gender Identity Female 05/25/2023 11:29 AM EST Sexual Orientation Not on file documented as of this encounter Plan of Treatment Upcoming Encounters Date Type Department Care Team (Late Contact Info) Description 08/14/2025 4:30 PM EDT Office Visit [facility] [address], [address] [place] [address] Taryn Herrera, RISK INVESTIGATOR [address] [place] [address] documented as of this encounter Visit Diagnoses Not on filedocumented in this encounter Care Teams Supervisor Paper Products Relationship Specialty Start Date End Date Felicia Ken MD [address] [place] [address] 1 [place] [address] PCP - General Internal Medicine 12/14/18 11/20/22 Geoffrey Nayak DO [address] [place] [address] PCP - General Internal Medicine 11/21/22 Светлана Perez, [address] [address] PHCM Butt Presser 12/11/22 Zaina Fajardo [address] [place] [address] [email or web address] PHCM Community Food Production Manager 01/29/23 03/04/23 Geoffrey Nayak DO [address] [place] [phone] Insurance Assigned Provider 07/04/23 04/04/24 Kaity Arnold [address] [place] [phone] [email or web address] PHCM Community Food Production Manager 01/28/24 02/01/24 Kaity Arnold [address] [place] [address] [email or web address] PHCM Community Food Production Manager 06/06/24 06/07/24 Aaron Toribio [address] [place] [address] [email or web address] Butt Presser 02/01/25 02/01/25 documented as of this encounter Additional Source Comments The information contained in this document represents components of the legal health record. It is not the complete legal health record.[facility]
--- OUTSIDE RECORDS SUMMARY | 2025-02-28 09:05 | XMS_ITS | Encounter Summary ---
Author Organization [facility] Address [address] [place] [address] [place] [phone] Phone Care Team Providers Care Lift Electrician Name Role Phone Felicia Ken MD Primary Care Provider [phone] Geoffrey Nayak DO Primary Care Provider Светлана Perez MULTIFOCAL LENS INSPECTOR Unavailable [phone] Zaina Fajardo Unavailable [email or web address] Geoffrey Hoffmann DO Unavailable [phone] Kaity Arnold Unavailable flash [email or web address] Kaity Arnold Unavailable flash Aaron Toribio Unavailable Encounter Details Date Type Department Care Team (Late st Contact Info) Description 12/22/2019 Transcribe Orders [address] [place] [address] Felicia Ken MD [address] [place] [phone] [email or web address] Urinary frequency (Primary Dx) Social History Tobacco Use Types Packs/Day Years Used Date Smoking Tobacco: Every Day Cigarettes 1 30 Smokeless Tobacco: Never Alcohol Use Standard Drinks/Week Comments Yes 0 (1 standard drink = 0.6 oz pur e alcohol) rarely drinks Comments Unknown Sex and Gender Information Value Date Recorded Sex Assigned at Not on file Legal Sex Female 9:41 PM EDT Gender Identity Female 05/25/2023 11:29 AM EST Sexual Orientation Not on file documented as of this encounter Plan of Treatment Upcoming Encounters Date Type Department Care Team (Late st Contact Info) Description 08/14/2025 4:30 PM EDT Office Visit [facility] [address], [address] [place] [address] Taryn Herrera, [employer] [address] [place] [address] documented as of this encounter Results * Urinalysis w/reflex Urine Culture (12/22/2019 11:41 AM EDT) COLOR Yellow Yellow [facility] CLARITY Clear [facility] GLUCOSE Negative Negative [facility] BILI Negative Negative [facility] KETONES Negative Negative [facility] SPECIFIC GRAVITY 1.020 1.005 - 1.030 [facility] BLOOD Negative Negative [facility] PH 6.0 5.0 - 8.0 [facility] Protein-UA Negative Negative [facility] NITRITE Negative Negative [facility] Leukocyte esterase, ur Negative Negative [facility] Urine (Urine) 12/22/2019 11: 41 AM EDT 12/22/2019 11:48 AM EDT Felicia Ken MD LAB URINE ORDERABLES Final R esult [facility] [address] [place] [address] * (ABNORMAL) CBC (12/22/2019 11:41 AM EDT) WBC 5.38 4.00 - 11.00 K/uL [facility] Comment:Note Reference Range updates to all CBC and Differential results. RBC 3.81 3.72 - 5.30 M/uL [facility] HGB 12.6 10.6 - 15.5 g/dL [facility] Comment:Note updated Referen ce Ranges for all CBC and Differential results. HCT 37.7 32.0 - 45.0 % [facility] PLT 210 140 - 430 K/uL [facility] MCV 99.0(H) 78.0 - 97.0 fL [facility] MCH 33.1(H) 25.0 - 33.0 pg [facility] MCHC 33.4 32.0 - 36.0 g/dL [facility] RDW 11.9 11.0 - 16.0 % [facility] MPV 11.4 8.4 - 12.8 fl [facility] NRBC 0.00 0 /100 WBCs [facility] ABSOLUTE NRBC 0.00 0 K/uL [facility] Blood 12/22/2019 11:4 1 AM EDT 12/22/2019 11:48 AM EDT us Felicia Ken MD LAB BLOOD BKR ORDERABLES Fin al Result Performing Organization Address City/State/[facility] Co de Phone Number [facility] [address] [place] [address] * Comprehensive metabolic panel (12/22/2019 11:41 AM EDT) SODIUM 142 133 - 146 mmol/L [facility] POTASSIUM 4.5 3.3 - 5.1 mmol/L [facility] CHLORIDE 105 96 - 108 mmol/L [facility] CO2 29 21 - 35 mmol/L [facility] BUN 15 6 - 19 mg/dL [facility] CREATININE 0.90 0.5 - 1.5 mg/dL [facility] GLUCOSE 91 70 - 99 mg/dL [facility] ALBUMIN 4.7 3.9 - 4.8 g/dL [facility] TOTAL PROTEIN 7.0 6.5 - 8.0 g/dL [facility] CALCIUM 9.5 8.4 - 10.3 mg/dL [facility] ALKALINE PHOSPHATASE 80 39 - 117 U/L [facility] TOTAL BILIRUBIN 0.3 0.0 - 1.2 mg/dL [facility] AST 31 0 - 37 U/L [facility] ALT 32 0 - 40 U/L [facility] GLOBULIN 2.3 1 - 4.8 g/dL [facility] EGFR 72 >59 mL/min/1.7 3m2 [facility] Comment:Estimated glomerular filtration rate calculated using the CKD-EPI equation. ANION GAP 13 10 - 20 mmol/L [facility] Blood 12/22/2019 11:4 1 AM EDT 12/22/2019 11:48 AM EDT us Felicia Ken MD LAB BLOOD BKR ORDERABLES Fin al Result [facility] [address] [place] [address] documented in this encounter Visit Diagnoses Diagnosis Urinary frequency- Primary documented in this encounter Care Teams Lift Electrician Relationship Specialty Start Date End Date Felicia Ken MD [address] [place] [phone] PCP - General Internal Medicine 12/14/18 11/20/22 Geoffrey Nayak DO [address] [place] [phone] PCP - General Internal Medicine 11/21/22 Светлана Perez LICSW [address] [place] [phone] PHCM Tree Doctor 12/11/22 Zaina Fajardo [address] [place] [phone] [email or web address] Community Resident Care Assistant 01/29/23 03/04/23 Geoffrey Nayak DO [address] [place] [phone] Insurance Assigned Provider 07/04/23 04/04/24 Kaity Arnold [address] [place] [phone] [email or web address] PHCM Community Resident Care Assistant 01/28/24 02/01/24 Kaity Arnold [address] [place] [phone] [email or web address] PHCM Community Resident Care Assistant 06/06/24 06/07/24 Aaron Toribio [address] [place] [phone] [email or web address] Tree Doctor 02/01/25 02/01/25 documented as of this encounter Additional Source Comments The information contained in this document represents components of the legal health record. It is not the complete legal health record.[facility]
--- OUTSIDE RECORDS SUMMARY | 2025-02-28 09:05 | XMS_ITS | Clinical Summary ---
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 superimposed benign fibroglandular tissue. IMPRESSION: No mammographic evidence of malignancy in either breast. Annual screening mammography is recommended. BI-RADS 2 BENIGN The patient will be notified of the results and recommendations. Geoffrey Nayak DO IMG MG EXAMS Final R esult * TSH (02/29/2024 2:32 PM EST) TSH 3.35 0.27 - 4.20 uIU/mL [facility] Blood 02/29/2024 2:32 PM EST 02/29/2024 2:40 PM EST Geoffrey Nayak DO LAB BLOOD BKR ORDERABLE S Final Result [address] [address] * CT CHEST LUNG CANCER SCREENING ANNUAL (02/24/2024 2:41 PM EST) Anatomical Region Laterality Modality Chest Computed Tomogra phy 03/01/2024 7:20 PM EST Impressions 03/01/2024 7:26 PM EST Lung-RADS Category: 2. The identified non-solid nodule has a very low likelihood of becoming a clinically active cancer, due to size or lack of growth. RECOMMENDATIONS: Continue Lung-RADS Annual Lung Cancer Screening Chest CT in 12-14 months if patient meets eligibility criteria. To order, please type CT CHEST SCREENING (CT.[email or web address].[email or web address]) and select ANNUAL for patient program status. Explanation of the Lung-RADS categories can be found at: [email or web address] Narrative 03/01/2024 7:[address] CHEST LUNG CANCER SCREENING ANNUAL Referring clinician's provided indication for this examination in [facility]: Lung Cancer Screening - FORMER smoker, quit in past 15 yrs (20+ pk-yrs, age 50-80) - ICD-10 Z87.891 TECHNIQUE: Low dose multidetector CT of the chest was performed without intravenous contrast using tailored dose modulation techniques. COMPARISON: CT CHEST LUNG CANCER SCREENING INITIAL FINDINGS: Devices/Tubes/Lines: None. Lungs: There is a 4 mm ground glass nodule in the right upper lobe (5:91). There are few additional pulmonary micronodules, for example in the left lower lobe (5:302). Stable left lower lobe calcified granuloma. Minimal secretions in the airways. Pleura: No pleural effusion or pneumothorax. Mediastinum: The heart size is normal. No pericardial effusion. No detectable coronary artery calcification. Lymph Nodes: No enlarged supraclavicular, axillary, mediastinal, or hilar lymph nodes. Upper Abdomen: Absence of intravenous contrast and low dose technique limits sensitivity for detecting small lesions, solid organ and vascular findings. Partially imaged left renal cystic focus, as before. Chest Wall: No chest wall mass. Bones: No suspicious lytic or blastic lesions. Metallic anchors are in the right humeral head. Degenerative changes are in the imaged spine. Procedure Note Mindy Jones MD - 03/01/2024 CT CHEST LUNG CANCER SCREENING ANNUAL Referring clinician's provided indication for this examination in [facility]:Lung Cancer Screening - FORMER smoker, quit in past 15 yrs (20+ pk-yrs,age 50-80) - ICD-10 Z87.891 TECHNIQUE: Low dose multidetector CT of the chest was performed withoutintravenous contrast using tailored dose modulation techniques. COMPARISON: CT CHEST LUNG CANCER SCREENING INITIAL FINDINGS: Devices/Tubes/Lines: None. Lungs: There is a 4 mm ground glass nodule in the right upper lobe (5:91).There are few additional pulmonary micronodules, for example in the leftlower lobe (5:302). Stable left lower lobe calcified granuloma. Minimalsecretions in the airways. Pleura: No pleural effusion or pneumothorax. Mediastinum: The heart size is normal. No pericardial effusion. Nodetectable coronary artery calcification. Lymph Nodes: No enlarged supraclavicular, axillary, mediastinal, or hilarlymph nodes. Upper Abdomen: Absence of intravenous contrast and low dose techniquelimits sensitivity for detecting small lesions, solid organ and vascularfindings. Partially imaged left renal cystic focus, as before. Chest Wall: No chest wall mass. Bones: No suspicious lytic or blastic lesions. Metallic anchors are in theright humeral head. Degenerative changes are in the imaged spine. IMPRESSION: Lung-RADS Category: 2. The identified non-solid nodule has a very lowlikelihood of becoming a clinically active cancer, due to size or lack ofgrowth. RECOMMENDATIONS: Continue Lung-RADS Annual Lung Cancer Screening Chest CT in 12-14 monthsif patient meets eligibility criteria. To order, please type CT CHEST SCREENING (CT.TH.CHESTSCRS) and selectANNUAL for patient program status. Explanation of the Lung-RADS categories can be found at:[email or web address] Sean Barraza MD [facility] CT CHEST Final Result * (ABNORMAL) Lipid panel (06/02/2023 1:52 PM EST) HDL 66 mg/dL [facility] Comment: Interpretation <40 mg/dL: Low HDL cholesterol (major risk factor for CHD) Greater than or equal to 60 mg/dL: High HDL cholesterol ( negative risk factor for CHD) HDL - cholesterol is affected by a number of factors, e.g. smoking, excerise, hormones, sex and age. CHOLESTEROL 217 0 - 240 mg/dL [facility] TRIGLYCERIDES 211(H) 30 - 160 mg/dL [facility] LDL 109 50 - 129 mg/dL [facility] Comment: LDL levels in terms of risk for coronary heart disease: <100 mg/dL: Optimal 100-129 mg/dL: Near or above optimal 130-159 mg/dL: Borderline high 160-189 mg/dL: High >190 mg/dL: Very High CARDIAC RISK RATIO 3.3 3.3 - 4.4 C [facility] Blood 06/02/2023 1:52 PM EST 06/02/2023 1:54 PM EST us Natalio Dawson MD LAB BLOOD BKR ORDERABLES Final Result Performing Organization Address [facility]/ZIP Co de Phone Number [address] [address] * Hepatitis C antibody, qualitative (12/11/2022 9:50 AM EDT) HCV NON-REACTIV E NON-REACTI VE [facility] Blood 12/11/2022 9:50 AM EDT 12/11/2022 10:08 AM EDT us Geoffrey Nayak DO LAB BLOOD BKR ORDERABLE S Final Result Performing Organization Address [facility] Co de Phone Number [address] [address] * (ABNORMAL) Valproic acid (12/11/2022 9:50 AM EDT) VALPROIC ACID 111.9(H) 50.0 - 100.0 ug/mL [facility] Blood 12/11/2022 9:50 AM EDT 12/11/2022 10:08 AM EDT us Geoffrey Nayak DO LAB BLOOD BKR ORDERABLE S Final Result Performing Organization Address [facility] de Phone Number [address] [address] * HM COLONOSCOPY FOR RESULT ENTRY ONLY (04/28/2019) us Historical Provider HEALTH MAINTENANCE Final Result from Last 3 Months or Most Recently Relevant to Health Maintenance Insurance MEDICARE PART A & B [facility] MEDICARE REPLACEMENT MEDICARE PART A & B [place] [facility] [facility] MEDICARE REPLACEMENT MEDICARE PART A & B [facility] A[facility] PPO MEDICARE REPLACEMENT MEDICARE PART A & B [facility] AETNA PPO MEDICARE REPLACEMENT MEDICARE PART A & B [facility] AETNA O MEDICARE REPLACEMENT MEDICARE PART A & B [place] [employer] PPO [place] [id number] [place] [address] [place] [address] Advance Directives For more information, please contact: [phone] (9AM - 5PM Mary Kate/[facility]_Drums, Thursday-Thursday) Documents on File Type Date Recorded Patient Education Research Analyst Expl anation Healthcare Proxy 04/09/2020 2:20 PM * Full Code (Presumed) (Latest Code Status on File) Date Activated Date Inactivated Comments 04/06/2020 6:52 AM Care Teams Shift Mechanic Relationship Specialty Start Date End Date Gregory Nayaked OdellDO [address] [place] [address], [address] [place] [address] [email or web address] PCP - General Internal Medicine 11/21/22 Светлана Perez, TEXTILE WORKER [address] [place] [address] [email or web address] PHCM Welt Rander 12/11/22 Additional Source Comments The information contained in this document represents components of the legal health record. It is not the complete legal health record.[facility]
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
--- OUTSIDE RECORDS SUMMARY | 2025-02-28 09:05 | XMS_ITS | Encounter Summary ---
Author Organization [facility] Address [address] [place] [address] [place] [address] Phone Care Team Providers Care Armored Machine Operator Name Role Phone Felicia Ken MD Primary Care Provider [phone] Geoffrey Nayak DO Primary Care Provider Светлана Perez [facility] Unavailable Zaina Fajardo Unavailable [email or web address] Geoffrey Hoffmann DO Unavailable [phone] Kaity Arnold Unavailable flash [email or web address] Kaity Arnold Unavailable flash [email or web address] Aaron Toribio Unavailable Encounter Details Date Type Department Care Team (Late st Contact Info) Description 03/28/2021 Ancillary Orders [facility], [address] [address] System, Provider Not In, [place] [address] Social History Tobacco Use Types Packs/Day Years [...] Description 08/14/2025 4:30 PM EDT Office Visit [facility] [address] [facility] 3rd Floor, [address] [place] [address] Taryn Herrera, CLASSROOM INSTRUCTOR [address] [place] [address] documented as of this encounter Results * US Breast Outside (No Interpretation) (01/04/2008 12:00 AM EDT) Narrative SYSTEMGENERATED, DOCUMENTATION - 03/28/2021 11:27 AM EST This study is for PACS storage only and not for interpretation. us Provider Not In System PhD IMG OUTSIDE IMAGING W /OUT INTERPRETATION Final Result documented in this encounter Visit Diagnoses Not on filedocumented in this encounter Care Teams Armored Machine Operator Relationship Specialty Start Date End Date Felicia Ken MD [address] [place] [address] 1 [place] [address] PCP - General Internal Medicine 12/14/18 11/20/22 Geoffrey Nayak DO [address] [place] [address] PCP - General Internal Medicine 11/21/22 Светлана Perez LICSW [address] [place] [address] PHCM Ordnance Artificer 12/11/22 Zaina Fajardo [address] [place] [phone] [email or web address] PHCM Community Pocket Marker 01/29/23 03/04/23 Geoffrey Nayak DO [address] [place] [address] [email or web address] Insurance Assigned Provider 07/04/23 04/04/24 Kaity Arnold [address] [place] [address] [email or web address] PHC Community Pocket Marker 01/28/24 02/01/24 Kaity Arnold [address] [place] [address] [email or web address] [facility] Community Pocket Marker 06/06/24 06/07/24 Aaron Toribio [address] [place] [address] [email or web address] Ordnance Artificer 02/01/25 02/01/25 documented as of this encounter Additional Source Comments The information contained in this document represents components of the legal health record. It is not the complete legal health record.[facility]
--- OUTSIDE RECORDS SUMMARY | 2025-02-28 09:05 | XMS_ITS | Encounter Summary ---
Author Organization [facility] Address [address] [place] [address] Phone Care Team Providers Care Bicycle I Assembler Name Role Phone Felicia Ken MD Primary Care Provider [phone] Geoffrey Nayak DO Primary Care Provider Светлана Perez [facility] Unavailable [phone] Zaina Fajardo Unavailable [email or web address] Geoffrey Hoffmann DO Unavailable [phone] Kaity Arnold Unavailable flash [email or web address] Kaity Arnold Unavailable flash [email or web address] Aaron Toribio Unavailable Encounter Details Date Type Department Care Team (Late st Contact Info) Description 01/23/2021 Transcribe Orders [address] [place] [address] Felicia Ken MD [address] [place] [address] [email or web address] Routine general medical examination at a health care facility (Primary Dx); Fatigue, unspecified type; Vitamin D deficiency, unspecified Social History Tobacco Use Types Packs/Day Years [...] Description 08/14/2025 4:30 PM EDT Office Visit [facility] [address]rd Floor, [address] [place] [address] Taryn Herrera, RETAIL ZONE SPECIALIST [address] [place] [address] [email or web address] documented as of this encounter Results * (ABNORMAL) 25-OH vitamin D (01/23/2021 9:08 AM EDT) 25 OH VIT D (TOTAL) 17(L) 30 - 60 ng/mL [facility] Blood 01/23/2021 9:08 AM EDT 01/23/2021 9:12 AM EDT us Felicia Ken MD LAB BLOOD BKR ORDERABLES Fin al Result Performing Organization Address City/[facility]/ZIP Co de Phone Number [address] [address] * TSH with reflex (01/23/2021 9:08 AM EDT) TSH 3.60 0.27 - 4.20 uIU/mL [facility] Blood 01/23/2021 9:08 AM EDT 01/23/2021 9:12 AM EDT Felicia Ken MD LAB BLOOD BKR ORDERABLES Fin al Result [address] [address] * (ABNORMAL) CBC and differential (01/23/2021 9:08 AM EDT) WBC 4.35 4.00 - 11.00 K/uL [facility] RBC 3.71(L) 3.72 - 5.30 M/uL [facility] HGB 12.6 11.4 - 15.9 g/dL [facility] HCT 36.9 34.2 - 46.8 % [facility] PLT 124(L) 140 - 430 K/uL [facility] MCV 99.5(H) 78.0 - 97.0 fL [facility] MCH 34.0(H) 25.0 - 33.0 pg [facility] MCHC 34.1 32.0 - 36.0 g/dL [facility] RDW 12.4 11.0 - 16.0 % [facility] MPV 11.4 8.4 - 12.8 fl [facility] NRBC 0.00 0 /100 WBCs [facility] ABSOLUTE NRBC 0.00 0 K/uL [facility] DIFF METHOD Auto [facility] NEUTS 41.6(L) 43.0 - 75.0 % [facility] LYMPHS 42.8 18.2 - 47.4 % [facility] MONOS 12.0(H) 4.00 - 11.00 % [facility] EOS 2.3 0.0 - 8.0 % [facility] BASOS 1.1 0.0 - 2.0 % [facility] Granulocytes, immature (%) 0.2 0.0 - 0.9 % [facility] ABSOLUTE NEUTS 1.81 1.80 - 7.70 K/uL [facility] ABSOLUTE LYMPHS 1.86 1.00 - 3.10 K/uL [facility] ABSOLUTE MONOS 0.52 0.20 - 0.80 K/uL [facility] ABSOLUTE EOS 0.10 0.00 - 0.80 K/uL [facility] ABSOLUTE BASOS 0.05 0.00 - 0.09 K/uL [facility] Granulocytes, immature 0.01 0.00 - 0.05 K/uL [facility] Blood 01/23/2021 9:08 AM EDT 01/23/2021 9:12 AM EDT us Felicia Ken MD LAB BLOOD BKR ORDERABLES Fin al Result [facility] [address] [place] [address] * (ABNORMAL) Comprehensive metabolic panel (01/23/2021 9:08 AM EDT) SODIUM 139 133 - 146 mmol/L [facility] POTASSIUM 4.1 3.3 - 5.1 mmol/L [facility] CHLORIDE 104 96 - 108 mmol/L [facility] CO2 25 21 - 35 mmol/L [facility] BUN 21(H) 6 - 19 mg/dL [facility] CREATININE 0.80 0.5 - 1.5 mg/dL [facility] GLUCOSE 91 70 - 99 mg/dL [facility] ALBUMIN 4.3 3.9 - 4.8 g/dL [facility] TOTAL PROTEIN 6.5 6.5 - 8.0 g/dL [facility] CALCIUM 8.9 8.4 - 10.3 mg/dL [facility] ALKALINE PHOSPHATASE 69 39 - 117 U/L [facility] TOTAL BILIRUBIN 0.3 0.0 - 1.2 mg/dL [facility] AST 19 0 - 37 U/L [facility] ALT 12 0 - 40 U/L [facility] GLOBULIN 2.2 1 - 4.8 g/dL [facility] EGFR 82 >59 mL/min/1.7 3m2 [facility] Comment:Estimated glomerular filtration rate calculated using the CKD-EPI equation. ANION GAP 14 10 - 20 mmol/L [facility] Blood 01/23/2021 9:08 AM EDT 01/23/2021 9:12 AM EDT us Felicia Ken MD LAB BLOOD BKR ORDERABLES Fin al Result [address] [address] * (ABNORMAL) Lipid panel (01/23/2021 9:08 AM EDT) HDL 63 mg/dL [facility] Comment: Interpretation <40 mg/dL: Low HDL cholesterol (major risk factor for CHD) Greater than or equal to 60 mg/dL: High HDL cholesterol ( negative risk factor for CHD) HDL - cholesterol is affected by a number of factors, e.g. smoking, excerise, hormones, sex and age. CHOLESTEROL 262(H) 0 - 240 mg/dL [facility] TRIGLYCERIDES 64 30 - 160 mg/dL [facility] LDL 186(H) 50 - 129 mg/dL [facility] Comment: LDL levels in terms of risk for coronary heart disease: <100 mg/dL: Optimal 100-129 mg/dL: Near or above optimal 130-159 mg/dL: Borderline high 160-189 mg/dL: High >190 mg/dL: Very High CARDIAC RISK RATIO 4.2 3.3 - 4.4 C [facility] Blood 01/23/2021 9:08 AM EDT 01/23/2021 9:12 AM EDT us Felicia Ken MD LAB BLOOD BKR ORDERABLES Fin al Result Performing Organization Address City/State/[facility] Co de Phone Number [address] [address] documented in this encounter Visit Diagnoses Diagnosis Routine general medical examination at a health care facility- Primary Fatigue, unspecified type Vitamin D deficiency, unspecified documented in this encounter Care Teams Bicycle I Assembler Relationship Specialty Start Date End Date Felicia Ken MD [address] [place] [address] PCP - General Internal Medicine 12/14/18 11/20/22 Geoffrey Nayak DO [address] [place] [address], 2nd [place] [address] PCP - General Internal Medicine 11/21/22 Светлана Perez LICSW [address] [place] [address] PHCM Choir Singer 12/11/22 Zaina Fajardo [address] [place] [phone] [email or web address] Community Radiation Engineer 01/29/23 03/04/23 Geoffrey Nayak DO [address] [place] [address], 2[address] [place] [address] Insurance Assigned Provider 07/04/23 04/04/24 Kaity Arnold [address] [place] [address] [email or web address] [facility] Community Radiation Engineer 01/28/24 02/01/24 Kiaty Arnold [address] [place] [address] [email or web address] [facility] Community Radiation Engineer 06/06/24 06/07/24 Aaron Toribio [address] [place] [address] [email or web address] Choir Singer 02/01/25 02/01/25 documented as of this encounter Additional Source Comments The information contained in this document represents components of the legal health record. It is not the complete legal health record.[facility]
--- OUTSIDE RECORDS SUMMARY | 2025-02-28 09:05 | XMS_ITS ---
Author Organization [facility] Address [address] [place] [address] Phone Care Team Providers Care Hand Drawer In Name Role Phone Geoffrey Nayak DO Primary Care Provider Светлана PerezSW Unavailable [phone] Population Health Care Management (PHCM) Status:Enrolled (Active) Start date:04/14/2023 Enrollment date:04/14/2023 Current support & services provided:[facility] Related social drivers of health:Housing Stability, Child or Family Care, Education, Food, Unemployment, Paying for Meds, Paying Utility Bills, Transportation, Digital Access, SNAP/WIC Case Team Name Relationship Phone Email Светлана Perez FURNITURE DELIVERY DRIVER(Responsible Staff) Spiral Winding Machine Helper [phone] Leydi Bell PHCM Shore Working Supervisor Continued Care and Services Coordination
--- OUTSIDE RECORDS SUMMARY | 2025-02-28 09:05 | XMS_ITS | Encounter Summary ---
Author Organization [facility] Address [address] [place] [address] [place] [address] Phone Care Team Providers Care Interventional Sale Consultant Name Role Phone Felicia Ken MD Primary Care Provider + [phone] Geoffrey Nayak DO Primary Care Provider Светлана Perez [facility] Unavailable [phone] Zaina Fajardo Unavailable [email or web address] Geoffrey Hoffmann DO Unavailable [phone] Kaity Arnold Unavailable flash [email or web address] Kaity Arnold Unavailable flash [email or web address] Aaron Toribio Unavailable Encounter Details Date Type Department Care Team (Late Contact Info) Description 06/09/2019 Ancillary Orders [facility],Outside [facility] [address] [place], [place] [id number] System, Provider Not In, PhD Partners [address] [address] Social History Tobacco Use Types Packs/Day Years [...] Description 08/14/2025 4:30 PM EDT Office Visit [facility] [address], [address] [place] [address] Taryn Herrera, GARMENT MENDER [address] [place] [address] documented as of this encounter Results * MRI Outside Upper Extremity (No Interpretation) (12/07/2018 12:00 AM EDT) Narrative SYSTEMGENERATED, DOCUMENTATION - 06/09/2019 7:49 AM EDT This study is for PACS storage only and not for interpretation. us Provider Not In System PhD IMG OUTSIDE IMAGING W /OUT INTERPRETATION Final Result documented in this encounter Visit Diagnoses Not on filedocumented in this encounter Care Teams Interventional Sale Consultant Relationship Specialty Start Date End Date Felicia Ken MD [address] [place] [address] 1 [place] [address] PCP - General Internal Medicine 12/14/18 11/20/22 Geoffrey Nayak DO [address] [place] [address] PCP - General Internal Medicine 11/21/22 Светлана Perez LICSW [address] [place] [address] PHCM Harness Mender 12/11/22 Zaina Fajardo [address] [place] [address] [email or web address] PHCM Community Bank Appraiser 01/29/23 03/04/23 Geoffrey Nayak DO [address] [place] [address] [email or web address] Insurance Assigned Provider 07/04/23 04/04/24 Kaity Arnold [address] [place] [address] [email or web address] PHC Community Bank Appraiser 01/28/24 02/01/24 Kaity Arnold [address] [place] [address] [email or web address] [facility] Community Bank Appraiser 06/06/24 06/07/24 Aaron Toribio [address] [place] [address] [email or web address] Harness Mender 02/01/25 02/01/25 documented as of this encounter Additional Source Comments The information contained in this document represents components of the legal health record. It is not the complete legal health record.[facility]
--- OUTSIDE RECORDS SUMMARY | 2025-02-28 09:05 | XMS_ITS | Encounter Summary ---
Author Organization [facility] Address [address] [facility] [address] [place] [address] Phone Care Team Providers Care Printing Assistant Name Role Phone Geoffrey Nayak DO Primary Care Provider Светлана Perez [facility] Unavailable Geoffrey Nayak DO Unavailable [phone] Kaity Arnold Unavailable flash [email or web address] Kaity Arnold Unavailable flash [email or web address] Aaron Toribio Unavailable Encounter Details Date Type Department Care Team (Latest Contact Info) Description 11/18/2023 Transcribe Orders Virtual Department 30 [place] [address] Marybeth Juan PA 6 [place] [address] [email or web address] Pain in thoracic spine (Primary Dx); Other spondylosis with radiculopathy, lumbar region Social History Tobacco Use Types Packs/Day Years [...] Description 08/14/2025 4:30 PM EDT Office Visit [facility] [address] [place] [address] 3rd Floor, [address] [place] [address] Taryn Herrera, EQUAL EMPLOYMENT OPPORTUNITY OFFICER [address] [place] [address] [email or web address] documented as of this encounter Results * XR THORACIC SPINE 3 VIEW (11/18/2023 4:18 PM EDT) Anatomical Region Laterality Modality T-spine Computed Radiogr aphy 11/18/2023 4:19 PM EDT Impressions 11/18/2023 4:21 PM EDT Degenerative changes of the thoracolumbar spine. Narrative 11/18/2023 4:21 PM EDT XR THORACIC SPINE 3 VIEW, XR LUMBOSACRAL SPINE 4 OR MORE VIEWS Referring clinician's provided indication for this examination in Epic: Outside Radiology Order; spondylosis lumbar region COMPARISON: CT CHEST LUNG CANCER SCREENING INITIAL ; CT ABDOMEN/PELVIS WITHOUT CONTRAST FINDINGS: No thoracic malalignment. Thoracic vertebral body heights are maintained. Multilevel degenerative changes with disc height loss and small endplate osteophytes, most pronounced in the mid-upper thoracic spine. Mild retrolisthesis of L5 on S1. Lumbar vertebral body heights are maintained. Mild multilevel disc height loss. Lower lumbar predominant facet arthropathy. The bilateral partes interarticularis are intact. Mild degenerative changes of the SI joints. There are degenerative changes of the cervical spine, incompletely assessed. Suture anchors are present within the right humeral head. Procedure Note Aldo Hernandez MD - 11/18/2023 XR THORACIC SPINE 3 VIEW, XR LUMBOSACRAL SPINE 4 OR MORE VIEWS Referring clinician's provided indication for this examination in [facility]:Outside Radiology Order; spondylosis lumbar region COMPARISON: CT CHEST LUNG CANCER SCREENING INITIAL ; CTABDOMEN/PELVIS WITHOUT CONTRAST FINDINGS: No thoracic malalignment. Thoracic vertebral body heights are maintained.Multilevel degenerative changes with disc height loss and small endplateosteophytes, most pronounced in the mid-upper thoracic spine. Mild retrolisthesis of L5 on S1. Lumbar vertebral body heights aremaintained. Mild multilevel disc height loss. Lower lumbar predominantfacet arthropathy. The bilateral partes interarticularis are intact. Milddegenerative changes of the SI joints. There are degenerative changes of the cervical spine, incompletelyassessed. Suture anchors are present within the right humeral head. IMPRESSION: Degenerative changes of the thoracolumbar spine. Mraybeth VARGAS IMG XR SPINE Final Result * XR LUMBOSACRAL SPINE 4 OR MORE VIEWS (11/18/2023 4:17 PM EDT) Anatomical Region Laterality Modality L-spine Computed Radiogr aphy 11/18/2023 4:19 PM EDT Impressions 11/18/2023 4:21 PM EDT Degenerative changes of the thoracolumbar spine. Narrative 11/18/2023 4:21 PM EDT XR THORACIC SPINE 3 VIEW, XR LUMBOSACRAL SPINE 4 OR MORE VIEWS Referring clinician's provided indication for this examination in [facility]: Outside Radiology Order; spondylosis lumbar region COMPARISON: CT CHEST LUNG CANCER SCREENING INITIAL ; CT ABDOMEN/PELVIS WITHOUT CONTRAST FINDINGS: No thoracic malalignment. Thoracic vertebral body heights are maintained. Multilevel degenerative changes with disc height loss and small endplate osteophytes, most pronounced in the mid-upper thoracic spine. Mild retrolisthesis of L5 on S1. Lumbar vertebral body heights are maintained. Mild multilevel disc height loss. Lower lumbar predominant facet arthropathy. The bilateral partes interarticularis are intact. Mild degenerative changes of the SI joints. There are degenerative changes of the cervical spine, incompletely assessed. Suture anchors are present within the right humeral head. Procedure Note Aldo Hernandez MD - 11/18/2023 XR THORACIC SPINE 3 VIEW, XR LUMBOSACRAL SPINE 4 OR MORE VIEWS Referring clinician's provided indication for this examination in [facility]:Outside Radiology Order; spondylosis lumbar region COMPARISON: CT CHEST LUNG CANCER SCREENING INITIAL ; CTABDOMEN/PELVIS WITHOUT CONTRAST FINDINGS: No thoracic malalignment. Thoracic vertebral body heights are maintained.Multilevel degenerative changes with disc height loss and small endplateosteophytes, most pronounced in the mid-upper thoracic spine. Mild retrolisthesis of L5 on S1. Lumbar vertebral body heights aremaintained. Mild multilevel disc height loss. Lower lumbar predominantfacet arthropathy. The bilateral partes interarticularis are intact. Milddegenerative changes of the SI joints. There are degenerative changes of the cervical spine, incompletelyassessed. Suture anchors are present within the right humeral head. IMPRESSION: Degenerative changes of the thoracolumbar spine. Marybeth VARGAS IMG XR SPINE Final Result documented in this encounter Visit Diagnoses Diagnosis Pain in thoracic spine- Primary Other spondylosis with radiculopathy, lumbar region Other spondylosis with radiculopathy, lumbar region Pain in thoracic spine documented in this encounter Additional Health Concerns Assessment Noted Time PHQ-9 Depression Total Score: 21 023 8:49 AM EDT PHQ-2 Depression Total Score: 0 01/02/20 23 1:30 PM EDT documented as of this encounter Care Teams Printing Assistant Relationship Specialty Start Date End Date Geoffrey Nayak DO [address] [place] [address], 2nd [place] [address] PCP - General Internal Medicine 11/21/22 Светлана Perez, CUSTODIAN BLOOD BANK [address] [place] [address] PHC Shipping/Receiving Manager 12/11/22 Geoffrey Nayak DO [address] [place] [address], 2[address] [place] [address] Insurance Assigned Provider 07/04/23 04/04/24 Kaity Arnold [address] [place] [address] [email or web address] [facility] Community Typesetter Apprentice 01/28/24 02/01/24 Kaity Arnold [address] [place] [address] [email or web address] [facility] Community Typesetter Apprentice 06/06/24 06/07/24 Aaron Toribio [address] [place] [address] carlos Shipping/Receiving Manager 02/01/25 02/01/25 documented as of this encounter Additional Source Comments The information contained in this document represents components of the legal health record. It is not the complete legal health record.[facility]
--- OUTSIDE RECORDS SUMMARY | 2025-02-28 09:05 | XMS_ITS | Encounter Summary ---
Author Organization [facility] Address [address] [place] [address] [place] [address] Phone Care Team Providers Care Server Programmer Name Role Phone Felicia Ken MD Primary Care Provider [phone] Geoffrey Nayak DO Primary Care Provider Светлана Perez [facility] Unavailable [phone] Zaina Fajardo Unavailable [email or web address] Geoffrey Hoffmann DO Unavailable [phone] Kaity Arnold Unavailable flash Kaity Arnold Unavailable flash Aaron Toribio Unavailable Encounter Details Date Type Department Care Team (Late st Contact Info) Description 11/28/2020 Ancillary Orders [facility], X-Ray - [address] [place] [address] Felicia Ken MD [address] [place] [address] [email or web address] Right knee pain, unspecified chronicity Social History Tobacco Use Types Packs/Day Years [...] Description 08/14/2025 4:30 PM EDT Office Visit [facility] [address] 3rd Floor, [address] [place] [address] Taryn Herrera, CRYPTOLOGIC TECHNICIAN OPERATOR/ANALYST 50 [place] [address] [email or web address] documented as of this encounter Results * XR KNEE 4 OR MORE VIEWS (RIGHT) (11/28/2020 3:24 PM EDT) Anatomical Region Laterality Modality Knee Right Computed Radiogr aphy 11/28/2020 4:53 PM EDT Impressions 11/28/2020 4:54 PM EDT No source of the pain. Narrative 11/28/2020 4:54 PM EDT Weightbearing AP view of the knees in partially flexed position as well as AP, lateral, and sunrise views of the right knee obtained. Bilateral knees: No chondrocalcinosis or joint space loss. No bony lesions or worrisome malalignment. Knee:Views the right knee demonstrate maintained joint spaces. No bony lesions or effusion. No osteochondral lesions detected. Procedure Note Leno Cortez MD - 11/28/2020 Weightbearing AP view of the knees in partially flexed position as well Opal, lateral, and sunrise views of the right knee obtained. Bilateral knees: No chondrocalcinosis or joint space loss. No bony lesionsor worrisome malalignment. Knee:Views the right knee demonstrate maintained joint spaces. No bonylesions or effusion. No osteochondral lesions detected. IMPRESSION: No source of the pain. Felicia Ken MD IMG XR LOWER EXTREMITY Final Result documented in this encounter Visit Diagnoses Diagnosis Right knee pain, unspecified chronicity Right knee pain, unspecified chronicity documented in this encounter Care Teams Server Programmer Relationship Specialty Start Date End Date Felicia Ken MD [address] [place] [address] 1 [place] [address] PCP - General Internal Medicine 12/14/18 11/20/22 Geoffrey Nayak DO [address] [place] [address], [address] [place] [address] PCP - General Internal Medicine 11/21/22 Светлана Perez LICSW [address] [place] [phone] PHCM Tobacco Packer 12/11/22 Zaina Fajardo [address] [place] [address] [email or web address] PHC Community Cattle Sticker 01/29/23 03/04/23 Geoffrey Nayak DO [address] [place] [address] Insurance Assigned Provider 07/04/23 04/04/24 Kaity Arnold [address] [place] [address] [email or web address] PHC Community Cattle Sticker 01/28/24 02/01/24 Kaity Arnold [address] [place] [address] [email or web address] PHC Community Cattle Sticker 06/06/24 06/07/24 Aaron Toribio [address] [place] [address] carlos Tobacco Packer 02/01/25 02/01/25 documented as of this encounter Additional Source Comments The information contained in this document represents components of the legal health record. It is not the complete legal health record.[facility]
--- OUTSIDE RECORDS SUMMARY | 2025-02-28 09:05 | XMS_ITS | Encounter Summary ---
Author Organization [facility] Address [address] [facility] [address] [place] [address] Phone Care Team Providers Care Brainer Name Role Phone Geoffrey Nayak DO Primary Care Provider Светлана Perez MANAGER E [employer] Unavailable [phone] Geoffrey Nayak DO Unavailable [phone] Kaity Arnold Unavailable flash Kaity Arnold Unavailable flash Aaron Toribio Unavailable Encounter Details Date Type Department Care Team (Late st Contact Info) Description 06/01/2023 Procedure Pass [facility] [address] [place] [address] Social History Tobacco Use Types Packs/Day Years [...] Description 08/14/2025 4:30 PM EDT Office Visit [facility] [address] [facility] 3rd Floor, [address] [place] [address] Taryn Herrera, INSTALL AND REPAIR TECHNICIAN 50 [place] [address] documented as of this encounter Visit Diagnoses Not on filedocumented in this encounter Additional Health Concerns Assessment Noted Time PHQ-9 Depression Total Score: 21 023 8:49 AM EDT PHQ-2 Depression Total Score: 0 01/02/20 23 1:30 PM EDT documented as of this encounter Care Teams Brainer Relationship Specialty Start Date End Date Geoffrey Nayak DO [address] [place] [address] PCP - General Internal Medicine 11/21/22 Светлана Perez LICSW [address] [place] [address] PHCM Pricing Consultant 12/11/22 Geoffrey Nayak DO [address] [place] [address] Insurance Assigned Provider 07/04/23 04/04/24 Kaity Arnold [address] [place] [address] [email or web address] PHCM Community Supervisor [employer] 01/28/24 02/01/24 Kaity Arnold [address] [place] [address] [email or web address] PHC Community Supervisor [employer] 06/06/24 06/07/24 Aaron Toribio [address] [place] [address] [email or web address] Pricing Consultant 02/01/25 02/01/25 documented as of this encounter Additional Source Comments The information contained in this document represents components of the legal health record. It is not the complete legal health record.[facility]
--- OUTSIDE RECORDS SUMMARY | 2025-02-28 09:05 | XMS_ITS | Encounter Summary ---
Author Organization [facility] Address [address] [place] [address] [place] [address] Phone Care Team Providers Care Band Ripsaw Operator Name Role Phone Felicia Ken MD Primary Care Provider [phone] Geoffrey Nayak DO Primary Care Provider Светлана Perez [facility] Unavailable [phone] Zaina Fajardo Unavailable [email or web address] Geoffrey Hoffmann DO Unavailable [phone] Kaity Arnold Unavailable flash [email or web address] Kaity Arnold Unavailable flash [email or web address] Aaron Toribio Unavailable Encounter Details Date Type Department Care Team (Late st Contact Info) Description 02/06/2021 Procedure Pass [facility] - [address] [place] [address] Social History Tobacco Use Types Packs/Day Years [...] Description 08/14/2025 4:30 PM EDT Office Visit [facility] [address] [facility] 3rd Floor, [address] [place] [address] Taryn Herrera, INTAKE COUNSELOR 50 [place] [address] documented as of this encounter Visit Diagnoses Not on filedocumented in this encounter Care Teams Band Ripsaw Operator Relationship Specialty Start Date End Date Felicia Ken MD [address] [place] [address] 1 [place] [address] PCP - General Internal Medicine 12/14/18 11/20/22 Geoffrey Nayak DO [address] [place] [address] PCP - General Internal Medicine 11/21/22 Светлана Perez [address] [address] PHCM Salesperson Florist Supplies 12/11/22 Zaina Fajardo [address] [place] [address] [email or web address] PHCM Community Liberal Arts Dean 01/29/23 03/04/23 Geoffrey Nayak DO [address] [place] [address] Insurance Assigned Provider 07/04/23 04/04/24 Kaity Arnold [address] [place] [address] [email or web address] PHCM Community Liberal Arts Dean 01/28/24 02/01/24 Kaity Arnold [address] [place] [address] [email or web address] PHCM Community Liberal Arts Dean 06/06/24 06/07/24 Aaron Toribio [address] [place] [address] carlos Salesperson Florist Supplies 02/01/25 02/01/25 documented as of this encounter Additional Source Comments The information contained in this document represents components of the legal health record. It is not the complete legal health record.[facility]
--- OUTSIDE RECORDS SUMMARY | 2025-02-28 09:05 | XMS_ITS | Encounter Summary ---
Author Organization [facility] Address [address] [place] [address] Phone Care Team Providers Care Canine Service Instructor Trainer Name Role Phone Felicia Ken MD Primary Care Provider [phone] Geoffrey Nayak DO Primary Care Provider Светлана Perez [facility] Unavailable [phone] Zaina Fajardo Unavailable [email or web address] Geoffrey Hoffmann DO Unavailable [phone] Kaity Arnold Unavailable flash Kaity Arnold Unavailable flash Aaron Toribio Unavailable Encounter Details Date Type Department Care Team (Late st Contact Info) Description 08/29/2022 Procedure Pass [facility] - [address] [address] Social History Tobacco Use Types Packs/Day Years [...] Description 08/14/2025 4:30 PM EDT Office Visit [facility] [address] [place] [address] 3rd Floor, [address] [place] [address] Taryn Herrera, COMMUNITY AIDE [address] [place] [address] documented as of this encounter Visit Diagnoses Not on filedocumented in this encounter Additional Health Concerns Assessment Noted Time PHQ-9 Depression Total Score: 13 023 2:10 PM EDT PHQ-2 Depression Total Score: 4 09/11/19 23 2:10 PM EDT documented as of this encounter Care Teams Canine Service Instructor Trainer Relationship Specialty Start Date End Date Felicia Ken MD [address] [place] [address] [address] [place] [address] PCP - General Internal Medicine 12/14/18 11/20/22 Geoffrey Nayak DO [address] [place] [address], 2nd [place] [address] PCP - General Internal Medicine 11/21/22 Светлана Perez LICSW [address] [place] [address] PHCM Hr Representative 12/11/22 Zaina Fajardo [address] [place], [place] [email or web address] PHCM Community Derrick Hand 01/29/23 03/04/23 Geoffrey Nayak DO [address] [place] [address], 2nd [place] [address] [email or web address] Insurance Assigned Provider 07/04/23 04/04/[address] [address] [email or web address] PHC Community Derrick Hand 01/28/24 02/01/[address] [address] [email or web address] [facility] Community Derrick Hand 06/06/24 06/07/24 Aaron Toribio [address] [place] [address] [email or web address] Hr Representative 02/01/25 02/01/25 documented as of this encounter Additional Source Comments The information contained in this document represents components of the legal health record. It is not the complete legal health record.[facility]
--- OUTSIDE RECORDS SUMMARY | 2025-02-28 09:05 | XMS_ITS | Encounter Summary ---
Author Organization [facility] Address [address] [facility] [address] [place] [address] Phone Care Team Providers Care Clinical Physician Assistant Name Role Phone Geoffrey Nayak DO Primary Care Provider Светлана Perez PIT HOIST OPERATOR Unavailable Geoffrey Nayak DO Unavailable [phone] Kaity Arnold Unavailable flash [email or web address] Kaity Arnold Unavailable flash Aaron Toribio Unavailable Encounter Details Date Type Department Care Team (Late st Contact Info) Description 05/25/2023 Procedure Pass [facility] - [address] [place] [address] Social History Tobacco Use Types Packs/Day Years [...] Description 08/14/2025 4:30 PM EDT Office Visit [facility] [address] [facility] 3rd Floor, [address] [place] [address] Taryn Herrera, GROUNDS MANAGER [address] [place] [address] documented as of this encounter Visit Diagnoses Not on filedocumented in this encounter Additional Health Concerns Assessment Noted Time PHQ-9 Depression Total Score: 21 023 8:49 AM EDT PHQ-2 Depression Total Score: 0 01/02/20 1:30 PM EDT documented as of this encounter Care Teams Clinical Physician Assistant Relationship Specialty Start Date End Date Geoffrey Nayak DO [address] [place] [address] PCP - General Internal Medicine 11/21/22 Светлана Perez LICSW [address] [place] [address] PHCM Home Energy Rater 12/11/22 Geoffrey Nayak DO [address] [place] [address] Insurance Assigned Provider 07/04/23 04/04/24 Kaity Arnold [address] [place] [address] [email or web address] PHCM Community Refrigeration Lead 01/28/24 02/01/24 Kaity Arnold [address] [place] [address] [email or web address] PHCM Community Refrigeration Lead 06/06/24 06/07/24 Aaron Toribio [address] [place] [address] [email or web address] Home Energy Rater 02/01/25 02/01/25 documented as of this encounter Additional Source Comments The information contained in this document represents components of the legal health record. It is not the complete legal health record.[facility]
--- OUTSIDE RECORDS SUMMARY | 2025-02-28 09:05 | XMS_ITS | Encounter Summary ---
Author Organization [facility] Address [address] [place] [address] Phone Care Team Providers Care Cash Surrender Calculator Name Role Phone Felicia Ken MD Primary Care Provider [phone] Geoffrey Nayak DO Primary Care Provider Светлана Perez [facility] Unavailable [phone] Zaina Fajardo Unavailable [email or web address] Geoffrey Hoffmann DO Unavailable [phone] Kaity Arnold Unavailable flash [email or web address] Kaity Arnold Unavailable flash [email or web address] Aaron Toribio Unavailable Encounter Details Date Type Department Care Team (Late st Contact Info) Description 04/06/2020 Prep for Surgery [facility] Orthopedics Virtual Department [address] [place] [address] Jose Luis Ulloa DO [address] [place] [address] [facility] [place] [address] [email or web address] Social History Tobacco Use Types Packs/Day Years [...] Description 08/14/2025 4:30 PM EDT Office Visit [facility] [address] [facility] 3rd Floor, [address] [place] [address] Taryn Herrera, PEDIATRIC DERMATOLOGIST [address] [place] [address] documented as of this encounter Visit Diagnoses Not on filedocumented in this encounter Care Teams Cash Surrender Calculator Relationship Specialty Start Date End Date Felicia Ken MD [address] [place] [address] 1 [place] [address] PCP - General Internal Medicine 12/14/18 11/20/22 Geoffrey Nayak DO [address] [place] [address] PCP - General Internal Medicine 11/21/22 Светлана Perez LICSW [address] [place] [address] PHCM Cable Armorer Operator 12/11/22 Zaina Fajardo [address] [place] [phone] [email or web address] PHCM Community Technical Rep 01/29/23 03/04/23 Geoffrey Nayak DO [address] [place] [address] Insurance Assigned Provider 07/04/23 04/04/24 Kaity Arnold [address] [place] [phone] [email or web address] PHC Community Technical Rep 01/28/24 02/01/24 Kaity Arnold [address] [place] [address] [email or web address] [facility] Community Technical Rep 06/06/24 06/07/24 Aaron Toribio [address] [place] [address] carlos Cable Armorer Operator 02/01/25 02/01/25 documented as of this encounter Additional Source Comments The information contained in this document represents components of the legal health record. It is not the complete legal health record.[facility]
--- OUTSIDE RECORDS SUMMARY | 2025-02-28 09:05 | XMS_ITS | Encounter Summary ---
Author Organization [facility] Address [address] [facility] [address] [place] [address] Phone Care Team Providers Care Livestock Yard Attendant Name Role Phone Geoffrey Nayak DO Primary Care Provider Светлана Perez PLASTIC TUBING INSULATION SUPERVISOR Unavailable [phone] Geoffrey Nayak DO Unavailable [phone] Kaity Arnold Unavailable flash [email or web address] Kaity Arnold Unavailable flash [email or web address] Aaron Toribio Unavailable Encounter Details Date Type Department Care Team (Latest Contact Info) Description 11/05/2023 Ancillary Orders [facility], X-Ray - [address] [address] Marybeth Juan PA [address] [place] [address] [email or web address] Trochanteric bursitis, right hip (Primary Dx) Social History Tobacco Use Types [...] Description 08/14/2025 4:30 PM EDT Office Visit [facility] [address] 3rd Floor, [address] [place] [address] Taryn Herrera, CAR MECHANIC HELPER [address] [place] [address] documented as of this encounter Results * XR HIP 2 VW RIGHT PLUS PELVIS (11/05/2023 9:57 AM EDT) Anatomical Region Laterality Modality Hip, Pelvis Computed Radiogr aphy 11/06/2023 12:5 8 PM EDT Impressions 11/06/2023 12:59 PM EDT No acute osseous abnormality. Narrative 11/06/2023 12:59 PM EDT XR HIP 2 VW RIGHT PLUS PELVIS Referring clinician's provided indication for this examination in [facility]: Pain COMPARISON: CT ABDOMEN/PELVIS WITHOUT CONTRAST FINDINGS: Minimal hip degenerative changes without joint space narrowing. No acute fracture. Frontal evaluation of the opposite hip demonstrates minimal degenerative changes. Procedure Note Jes Fraser MD - 11/06/2023 XR HIP 2 VW RIGHT PLUS PELVIS Referring clinician's provided indication for this examination in [facility]:Pain COMPARISON: CT ABDOMEN/PELVIS WITHOUT CONTRAST FINDINGS: Minimal hip degenerative changes without joint space narrowing. No acutefracture. Frontal evaluation of the opposite hip demonstrates minimal degenerativechanges. IMPRESSION: No acute osseous abnormality. us Marybeth VARGAS IMG XR PELVIS Final Result documented in this encounter Visit Diagnoses Diagnosis Trochanteric bursitis, right hip- Primary Trochanteric bursitis, right hip documented in this encounter Additional Health Concerns Assessment Noted Time PHQ-9 Depression Total Score: 21 023 8:49 AM EDT PHQ-2 Depression Total Score: 0 01/02/20 23 1:30 PM EDT documented as of this encounter Care Teams Livestock Yard Attendant Relationship Specialty Start Date End Date Geoffrey Nayak DO [address] [place] [address], [address] [place] [address] PCP - General Internal Medicine 11/21/22 Светлана Perez [address] [address] PHCM Admissions Evaluator 12/11/22 Geoffrey Nayak DO [address] [place] [address], [address] [place] [address] Insurance Assigned Provider 07/04/23 04/04/24 Kaity Arnold [address] [place] [phone] [email or web address] PHC Community Youth Care Professional 01/28/24 02/01/24 Kaity Arnold [address] [place] [address] [email or web address] PHC Community Youth Care Professional 06/06/24 06/07/24 Aaron Toribio [address] [place] [address] carlos Admissions Evaluator 02/01/25 02/01/25 documented as of this encounter Additional Source Comments The information contained in this document represents components of the legal health record. It is not the complete legal health record.[facility]
--- OUTSIDE RECORDS SUMMARY | 2025-02-28 09:05 | XMS_ITS | Encounter Summary ---
Author Organization [facility] Address [address] [facility] [address] [place] [address] Phone Care Team Providers Care Market Reporter Name Role Phone Geoffrey Nayak DO Primary Care Provider Светлана Perez CHILD DEVELOPMENT TEACHER Unavailable Geoffrey Nayak DO Unavailable [phone] Kaity Arnold Unavailable flash [email or web address] Kaity Arnold Unavailable flash Aaron Toribio Unavailable Encounter Details Date Type Department Care Team (Late st Contact Info) Description 08/06/2023 Procedure Pass [facility], Ct Scan - [address] [address] Social History Tobacco Use Types Packs/Day Years [...] Description 08/14/2025 4:30 PM EDT Office Visit [facility] [address] [facility] 3rd Floor, [address] [place] [address] Taryn Herrera, PURIFICATION OPERATOR [address] [place] [address] documented as of this encounter Visit Diagnoses Not on filedocumented in this encounter Additional Health Concerns Assessment Noted Time PHQ-9 Depression Total Score: 21 023 8:49 AM EDT PHQ-2 Depression Total Score: 0 01/02/20 1:30 PM EDT documented as of this encounter Care Teams Market Reporter Relationship Specialty Start Date End Date Geoffrey Nayak DO [address] [place] [address] PCP - General Internal Medicine 11/21/22 Светлана Perez LICSW [address] [place] [address] PHCM Manager Career 12/11/22 Geoffrey Nayak DO [address] [place] [address] Insurance Assigned Provider 07/04/23 04/04/24 Kaity Arnold [address] [place] [address] [email or web address] PHCM Community Van Cdl Driver 01/28/24 02/01/24 Kaity Arnold [address] [place] [phone] [email or web address] PHCM Community Van Cdl Driver 06/06/24 06/07/24 Aaron Toribio [address] [place] [address] [email or web address] Manager Career 02/01/25 02/01/25 documented as of this encounter Additional Source Comments The information contained in this document represents components of the legal health record. It is not the complete legal health record.[facility]
[2025-02-28 09:23] LABS: MANUAL DIFF FLAG NO
[2025-02-28 09:25] LABS: Hematocrit 37.3 % (37.0-47.0); Hemoglobin 12.8 g/dl (12.0-16.0); Imm Gran Abs Auto 0.01 X10*3/uL (0.00-0.03); Imm Gran Pct Auto 0.2 % (0.0-0.4); Lymphocytes Absolute Auto 1.8 X10*3/uL (1.2-4.9); Mean Corpuscular HGB Conc 34.3 g/dl (31.0-35.0); Mean Corpuscular Hemoglobin 34.8 pg (27.0-33.0); Mean Corpuscular Volume 101.4 fL (80.0-98.0); NRBC Abs Auto 0.000 X10*3/uL (0.0-0.012); NRBC Pct Auto 0.0 /100WBC (0.0-0.2); Platelet Count 233 X10*3/uL (160-400); Red Blood Count 3.68 X10*6/uL (4.20-5.50); White Blood Count 4.1 X10*3/uL (4.8-10.8)
[2025-02-28 09:45] LABS: Alanine Aminotransferase 14 U/L (0-31); Albumin Level 4.2 g/dL (3.5-5.0); Alkaline Phosphatase 67 U/L (39-117); Anion Gap 9 (12-20); Aspartate Amino Transferase 23 U/L (5-31); Blood Urea Nitrogen 17 mg/dL (9-16); Calcium 9.1 mg/dL (8.4-10.2); Carbon Dioxide 28 mmol/L (22-29); Chloride 106 mmol/L (96-108); Creatinine Clr Calc Pharmacy 57.4; Estimated Glomerular Filt Rate > 60; Potassium 4.1 mmol/L (3.3-5.1); Sodium 139 mmol/L (135-145); Total Protein 6.6 g/dL (6.5-8.0)
[2025-02-28 09:49] LABS: NT Pro B Type Natriuretic Pept 118.0 pg/mL (<300)
[2025-02-28 09:57] LABS: Troponin-I High Sensitivity < 2.7 ng/L (<3.5-17.0)
[2025-02-28 10:02] LABS: Resp Syncy Virus RNA Qual PCR NEGATIVE (Negative); SARS COV2 PCR INHOUSE NEGATIVE (Negative)
[2025-02-28 12:14] LABS: Troponin-I High Sensitivity < 2.7 ng/L (<3.5-17.0)
--- NOTE | 2025-02-28 14:52 | PC.NURSE ---
Pt roomed and placed on full monitor NSR no ectopy Pt states she has CARDENAS now and had confusion earlier this am when she awoke. Will report to provider. Neuro assessment appears intact.
[2025-02-28 15:00] VITALS: BP 124/72; PULSE 71; RESP 12; O2SAT 98
[2025-02-28] MEDS: Sucralfate Oral Suspension 1 GM/10 ML ORAL.SUSP PO (15:12)
[2025-02-28] MEDS: Magnesium Hydrox/Alum Hydrox 30 ML ORAL.SUSP PO (15:12)
[2025-02-28 15:42] LABS: D Dimer High Sensitivity < 150 NG/ML
[2025-02-28 16:56] VITALS: BP 140/77; PULSE 78; RESP 14; TEMP 36.6; O2SAT 97
[2025-02-28 17:38] VITALS: BP 140/77; PULSE 78; RESP 14; TEMP 36.6; O2SAT 97
== END 2025-02-28 17:47 | disposition home or self-care (01) ==
PROVIDERS: Physician Assistant Medical; Emergency Provider Emergency Medicine; PCP Pediatrics
DX: R07.89 Other chest pain (principal); R10.13 Epigastric pain; R79.89 Other specified abnormal findings of blood chemistry; R51.9 Headache, unspecified; Z03.818 Encounter for observation for suspected exposure to other biological agents ruled out
CPT/HCPCS: 36415; 70450; 71046; 76705; 80053; 83880; 84484; 85025; 85379; 87637; 93005; 99284; 99285; J1308

== ENCOUNTER → 2025-02-28 08:23 | Outpatient (BNV) | payer MEDICARE, MEDICAID, SELFPAY | PROVIDERS: Emergency Provider Emergency Medicine; PCP Pediatrics; Visit Provider Internal Medicine | DX: R94.31 Abnormal electrocardiogram [ECG] [EKG] (principal); R07.9 Chest pain, unspecified | CPT/HCPCS: 93010 ==

== ENCOUNTER → 2025-02-28 08:31 | Outpatient (BNV) | payer MEDICARE, MEDICAID, SELFPAY | PROVIDERS: PCP Pediatrics; Visit Provider Radiology Diagnostic Radiology | DX: R07.9 Chest pain, unspecified (principal) | CPT/HCPCS: 70450; 71046 ==